=== PATIENT | male | born 1940 | race Caucasian/White ===

== ENCOUNTER → 2016-02-28 | Outpatient (CLI) | payer MEDICARE ==
[2016-02-28 18:13] LABS: Blood Urea Nitrogen 15 mg/dL (9-20); Non-African American GFR(MDRD) >60 (>60 ml/min/1.73 sqM)
--- NOTE | 2016-02-28 20:22 | CT ---
EXAMINATION TYPE: CT abdomen pelvis w con DATE OF EXAM: 02/28/2016 7:51 PM COMPARISON: NONE HISTORY: Pt states of RLQ pain x1 month. CT DLP: 699.8 mGycm Automated exposure control for dose reduction was used. TECHNIQUE: Helical acquisition of images was performed from the lung bases through the pelvis. CONTRAST: Performed with Oral Contrast and with IV Contrast, patient injected with 100 mL of Omnipaque 300. FINDINGS: LUNG BASES: Bullae and blebs are noted in the lung bases. LIVER/GB: No significant abnormality is appreciated. PANCREAS: No significant abnormality is seen. SPLEEN: No significant abnormality is seen. ADRENALS: No significant abnormality is seen. KIDNEYS: Bilateral simple appearing renal cysts are noted, with one measuring nearly 12 cm diameter e xtending superiorly from the upper pole left kidney. Otherwise, no significant abnormality is seen. RETROPERITONEAL ADENOPATHY: None visualized REPRODUCTIVE ORGANS: No significant abnormality is seen URINARY BLADDER: No significant abnormality is seen. PELVIC ADENOPATHY: None visualized. OSSEOUS STRUCTURES: No significant abnormality is seen. BOWEL: There is no bowel obstruction. The appendix is retrocecal in position and has normal appearanc e. ANTERIOR RIGHT LOWER QUADRANT FINDING: The anterior abdominal wall is intact. However, low in the pel vis immediately medial to the ipsilateral right inferior epigastric vasculature is asymmetric 1.5 cm soft tissue density. This is a nonspecific finding - but may correlate with a clinical diagnosis of r esidual change from intermittent right direct inguinal hernia. VASCULATURE: Nonaneurysmal atherosclerotic calcifications are seen throughout the arterial anatomy. IMPRESSION: 1. NO ACUTE PROCESS. 2. HOWEVER, RIGHT LOWER QUADRANT ASYMMETRY DISCUSSED.
== END | disposition home or self-care (01) ==
LOC: RADCTMAIN 17:27
PROVIDERS: ATTEND Family Medicine
DX: R10.9 Unspecified abdominal pain (principal); Z01.812 Encounter for preprocedural laboratory examination
CPT/HCPCS: 82565; 84520; 74177; 36415; Q9967

== ENCOUNTER 2017-03-19 03:01 | Inpatient (IN) | payer MEDICARE ==
[2017-03-19] MEDS ORDERED: IPRATROPIUM 0.5 MG/2.5 ML NEBU INHALATION STA (03:21)
[2017-03-19] MEDS ORDERED: methylPREDNISolone SOD SUCCI 125 MG/2 ML VIAL IV STA (03:21)
[2017-03-19] MEDS ORDERED: ALBUTEROL NEBULIZED 2.5 MG/3 ML INHALATION STA (03:21)
[2017-03-19 04:06] LABS: Basophils % (A) 0 %; Eosinophils # (A) 0.1 k/uL (0-0.7); Eosinophils % (A) 1 %; HCT 41.1 % (39.0-53.0); HGB 13.3 gm/dL (13.0-17.5); Lymphocytes # (A) 2.4 k/uL (1.0-4.8); Lymphocytes % (A) 16 %; MCHC 32.4 g/dL (31.0-37.0); MCV 101.9 fL (80.0-100.0); Macrocytosis Slight; Mean Platelet Volume 6.4; Monocytes # (A) 0.8 k/uL (0-1.0); Monocytes % (A) 6 %; Neutrophils # (A) 11.3 k/uL (1.3-7.7); Neutrophils % (A) 76 %; Platelet Count 173 k/uL (150-450); RBC 4.04 m/uL (4.30-5.90); RDW 13.1 % (11.5-15.5); WBC 14.8 k/uL (3.8-10.6)
[2017-03-19 04:25] LABS: ALT 48 U/L (21-72); AST 39 U/L (17-59); Albumin 3.7 g/dL (3.5-5.0); Alkaline Phosphatase 65 U/L (38-126); Anion Gap 7 mmol/L; Blood Urea Nitrogen 16 mg/dL (9-20); Calcium 9.5 mg/dL (8.4-10.2); Carbon Dioxide 30 mmol/L (22-30); Chloride 101 mmol/L (98-107); Glucose 114 mg/dL (74-99); Potassium 4.3 mmol/L (3.5-5.1); Sodium 138 mmol/L (137-145); Total Bilirubin 1.1 mg/dL (0.2-1.3); Total Protein 6.2 g/dL (6.3-8.2)
--- NOTE | 2017-03-19 04:25 | ED ---
SOB HPI - General Chief Complaint: Shortness of Breath Stated Complaint: SOB Time Seen by Provider: 03/19/17 03:16 Source: patient Mode of arrival: wheelchair Limitations: no limitations - History of Present Illness Initial Comments: 76 years old male comes in with severe shortness of breath he has a history of COPD he has smoked over 50 years and his added that was at time he was smoking 3-4 packs a day and is also complaining about the chest pain ongoing for last couple days and now chest pain is worse when he takes a deep breath he denies any fever no chills he's coughing up phlegm he is having a hard time bringing phlegm up he denies any headache no neck stiffness has chest pain has shortness of breath has a pleuritic chest pain no abdominal pain no frequency urgency dysuria no symptoms of TIA or CVA - Related Data Home Medications Medication Instructions Recorded Confirmed Atorvastatin [Lipitor] 20 mg PO DAILY 03/19/17 03/19/17 Budesonide-Formot 160-4.5 Mcg 2 puff INHALATION BID 03/19/17 03/19/17 [Symbicort 160-4.5 Mcg Inhaler] HYDROcodone/APAP 5-325MG [[place] 1 tab PO Q6HR PRN 03/19/17 03/19/17 5-325] Ipratropium-Albuterol Nebulize 3 ml INHALATION 03/19/17 [Duoneb 0.5 mg-3 mg/3 ml Soln] Ipratropium/Albuterol Sulfate 1 puff INHALATION QID 03/19/17 03/19/17 [Combivent Respimat Inhaler] predniSONE 5 mg PO DAILY 03/19/17 03/19/17 Allergies Allergy/AdvReac Type Severity Reaction Status Date / Time No Known Allergies Allergy Verified 03/19/17 03:07 Review of Systems ROS Statement: Those systems with pertinent positive or pertinent negative responses have been documented in the HPI. ROS Other: All systems not noted in ROS Statement are negative. Past Medical History Past Medical History: COPD History of Any Multi-Drug Resistant Organisms: None Reported Past Surgical History: Hernia Repair Additional Past Surgical History / Comment(s): Lung sx Past Psychological History: No Psychological Hx Reported Smoking Status: Former smoker Past Alcohol Use History: None Reported Past Drug Use History: None Reported General Exam Limitations: no limitations Course Vital Signs 03/19/17 03/19/17 03/19/17 03:03 03:47 04:10 Temperature 99.4 F Pulse Rate 103 H 100 104 H Respiratory 20 Rate Blood Pressure 109/58 O2 Sat by Pulse 95 Oximetry 03/19/17 04:30 Temperature Pulse Rate 108 H Respiratory Rate Blood Pressure O2 Sat by Pulse Oximetry EKG is sinus tachycardia ventricular rate is 109 AR interval is 152 QRS duration is 70 QT/QTC 326/452 and we have this EKG does not reveal any ST elevation or ST depression , Patient is reassessed at 5:30 AM, white count is 15 with some left shift d- dimer is negative troponin is negative compressive metabolic panel is negative chest x-rays consistent with the bilateral patchy infiltrate consistent with a pneumonia E I sinus tachycardia [place] [address] elevation noticed centering his pneumonia and COPD he be admitted to Medical Decision Making - Lab Data Result diagrams: 03/19/17 03:50 03/19/17 03:50 Lab Results 03/19/17 03/19/17 03/19/17 Range/Units 03:50 03:50 03:50 WBC 14.8 H (3.8-10.6) k/uL RBC 4.04 L (4.30-5.90) m/uL Hgb 13.3 (13.0-17.5) gm/dL Hct 41.1 (39.0-53.0) % MCV 101.9 H (80.0-100.0) fL MCH 33.0 (25.0-35.0) pg MCHC 32.4 (31.0-37.0) g/dL RDW 13.1 (11.5-15.5) % Plt Count 173 (150-450) k/uL Neutrophils % 76 % Lymphocytes % 16 % Monocytes % 6 % Eosinophils % 1 % Basophils % 0 % Neutrophils # 11.3 H (1.3-7.7) k/uL Lymphocytes # 2.4 (1.0-4.8) k/uL Monocytes # 0.8 (0-1.0) k/uL Eosinophils # 0.1 (0-0.7) k/uL Basophils # 0.0 (0-0.2) k/uL Macrocytosis Slight PT (9.0-12.0) sec INR (<1.2) APTT (22.0-30.0) sec D-Dimer (<0.60) mg/L FEU Sodium 138 (137-145) mmol/L Potassium 4.3 (3.5-5.1) mmol/L Chloride 101 (98-107) mmol/L Carbon Dioxide 30 (22-30) mmol/L Anion Gap 7 mmol/L BUN 16 (9-20) mg/dL Creatinine 1.10 (0.66-1.25) mg/dL Est GFR (MDRD) Af Amer >60 (>60 ml/min/1.73 sqM) Est GFR (MDRD) Non-Af >60 (>60 ml/min/1.73 sqM) Glucose 114 H (74-99) mg/dL Calcium 9.5 (8.4-10.2) mg/dL Total Bilirubin 1.1 (0.2-1.3) mg/dL AST 39 (17-59) U/L ALT 48 (21-72) U/L Alkaline Phosphatase 65 (38-126) U/L Total Creatine Kinase 141 (55-170) U/L CK-MB (CK-2) 1.0 (0.0-2.4) ng/mL CK-MB (CK-2) Rel Index 0.7 Troponin I 0.015 (0.000-0.034) ng/mL NT-Pro-B Natriuret Pep pg/mL Total Protein 6.2 L (6.3-8.2) g/dL Albumin 3.7 (3.5-5.0) g/dL 03/19/17 03/19/17 Range/Units 03:50 03:50 WBC (3.8-10.6) k/uL RBC (4.30-5.90) m/uL Hgb (13.0-17.5) gm/dL Hct (39.0-53.0) % MCV (80.0-100.0) fL MCH (25.0-35.0) pg MCHC (31.0-37.0) g/dL RDW (11.5-15.5) % Plt Count (150-450) k/uL Neutrophils % % Lymphocytes % % Monocytes % % Eosinophils % % Basophils % % Neutrophils # (1.3-7.7) k/uL Lymphocytes # (1.0-4.8) k/uL Monocytes # (0-1.0) k/uL Eosinophils # (0-0.7) k/uL Basophils # (0-0.2) k/uL Macrocytosis PT 9.6 (9.0-12.0) sec INR 1.0 (<1.2) APTT 22.0 (22.0-30.0) sec D-Dimer 0.54 (<0.60) mg/L FEU Sodium (137-145) mmol/L Potassium (3.5-5.1) mmol/L Chloride (98-107) mmol/L Carbon Dioxide (22-30) mmol/L Anion Gap mmol/L BUN (9-20) mg/dL Creatinine (0.66-1.25) mg/dL Est GFR (MDRD) Af Amer (>60 ml/min/1.73 sqM) Est GFR (MDRD) Non-Af (>60 ml/min/1.73 sqM) Glucose (74-99) mg/dL Calcium (8.4-10.2) mg/dL Total Bilirubin (0.2-1.3) mg/dL AST (17-59) U/L ALT (21-72) U/L Alkaline Phosphatase (38-126) U/L Total Creatine Kinase (55-170) U/L CK-MB (CK-2) (0.0-2.4) ng/mL CK-MB (CK-2) Rel Index Troponin I (0.000-0.034) ng/mL NT-Pro-B Natriuret Pep 147 pg/mL Total Protein (6.3-8.2) g/dL Albumin (3.5-5.0) g/dL Disposition Clinical Impression: COPD (chronic obstructive pulmonary disease), Pneumonia Disposition: ADMITTED IP TO THIS HOSP Condition: Good Referrals: Ck Villarreal DO [Primary Care Provider] - 1-2 days
[2017-03-19 04:41] LABS: D-Dimer 0.54 mg/L FEU (<0.60); Prothrombin Time 9.6 sec (9.0-12.0); Troponin I 0.015 ng/mL (0.000-0.034)
--- NOTE | 2017-03-19 05:10 | XR ---
EXAM: XR Chest, 2 Views CLINICAL HISTORY: Reason: difficulty breathing TECHNIQUE: Frontal and lateral views of the chest. COMPARISON: Chest x-ray dated 11/21/2015. FINDINGS: Lungs: New mild patchy opacities in both lower lungs. Pleural space: Unremarkable. No pneumothorax. Heart: Unremarkable. No cardiomegaly. Mediastinum: Unremarkable. Bones/joints: Mild degenerative changes of thoracic spine. There is also unchanged mild vertebral body height loss in the lower thoracic spine. IMPRESSION: New mild patchy opacities in both lower lungs. This is suspicious for mild pneumonia.
[2017-03-19] MEDS ORDERED: IPRATROPIUM-ALBUTEROL 3 ML NEB INHALATION PRN (05:52)
[2017-03-19] MEDS ORDERED: LEVOFLOXACIN 750MG-D5W PMX 750 MG in DEXTROSE/WATER 1 150ML.BAG IVPB STA (05:52)
[2017-03-19] MEDS ORDERED: HYDROcodone/APAP 5-325MG 1 EACH TAB PO PRN (05:56)
[2017-03-19] MEDS: IPRATROPIUM-ALBUTEROL 3 ML NEB INHALATION SCH ×5 (07:21→23:31)
[2017-03-19] MEDS ORDERED: SYMBICORT 160-4.5 MCG INHALER INHALATION SCH ×2 (08:00→09:00)
[2017-03-19 08:18] VITALS: BMI 27.8
[2017-03-19] MEDS ORDERED: ATORVASTATIN 20 MG TAB PO SCH (09:00)
[2017-03-19] MEDS: methylPREDNISolone SOD SUCCI 125 MG/2 ML VIAL IV SCH ×2 (11:27→17:37)
--- NOTE | 2017-03-19 11:53 | P.CNPUL ---
History of Present Illness Consult date: 03/19/17 Requesting physician: Jose Catherine Reason for consult: dyspnea, cough, chest pain, pneumonia, abnormal CXR/CT Chief complaint: Increased shortness of breath, chills, chest pain, cough History of present illness: Cliff is a 76-year-old white male patient, who sees Dr. Villarreal for his history of advanced GOLD stage IV COPD who presented to the hospital on 2017 at 0301 with complaints of 3 day history of increasing shortness of breath , chest pain which was limiting his inspiration, no fever but was positive for chills, cough with production of white and yellow sputum and increased swelling in his legs. He wears oxygen at home at bedtime, at 2 L/m. Patient is a former smoker, he quit in 2007, but prior to that he smoked for 44 years. Patient was afebrile on presentation, he slightly tachycardic with a heart rate between 102-110 BPM, twelve-lead EKG showed sinus tachycardia, chest x-ray showed new mild patchy opacities in both lower lungs. His lab work showed WBC of 14.8, hemoglobin of 13.3, d-dimer was negative at 0.54, no coagulopathy, his electrolyte profile was normal, his renal profile was within normal limits with BUN of 16 and creatinine of 1.10, troponins and cardiac enzymes were negative 1 , proBNP was at 147, within normal limits. Influenza screen was negative. Patient was started on nebulized treatments, Symbicort, Levaquin, IV steroids and was admitted for further management. Review of Systems All systems: negative Constitutional: Reports malaise, Reports sweats, Denies chills, Denies fever Eyes: denies blurred vision, denies pain Ears, nose, mouth and throat: Denies headache, Denies sore throat Cardiovascular: Reports dyspnea on exertion, Reports edema, Reports leg edema, Denies chest pain, Denies shortness of breath Respiratory: Reports cough with sputum, Reports dyspnea, Reports home oxygen, Reports pain on inspiration, Denies cough Gastrointestinal: Denies abdominal pain, Denies diarrhea, Denies nausea, Denies vomiting Musculoskeletal: Denies myalgias Integumentary: Denies pruritus, Denies rash Neurological: Denies numbness, Denies weakness Psychiatric: Denies anxiety, Denies depression Endocrine: Denies fatigue, Denies weight change Past Medical History Past Medical History: COPD History of Any Multi-Drug Resistant Organisms: None Reported Past Surgical History: Hernia Repair Additional Past Surgical History / Comment(s): Lung sx, cataract surgery Past Anesthesia/Blood Transfusion Reactions: No Reported Reaction Past Psychological History: No Psychological Hx Reported Smoking Status: Former smoker Past Alcohol Use History: None Reported Past Drug Use History: None Reported - Past Family History Father Family Medical History: Hypertension, Seizure Disorder Mother Family Medical History: Cancer, Diabetes Mellitus Additional Family Medical History / Comment(s): breast cancer Medications and Allergies Home Medications Medication Instructions Recorded Confirmed Type Atorvastatin [Lipitor] 20 mg PO HS 03/19/17 03/19/17 History Budesonide-Formot 160-4.5 Mcg 2 puff INHALATION RT-BID 03/19/17 03/19/17 History [Symbicort 160-4.5 Mcg Inhaler] HYDROcodone/APAP 5-325MG [[place] 1 tab PO HS 03/19/17 03/19/17 History 5-325] Ipratropium-Albuterol Nebulize 3 ml INHALATION RT-QID PRN 03/19/17 03/19/17 History [Duoneb 0.5 mg-3 mg/3 ml Soln] Ipratropium/Albuterol Sulfate 1 puff INHALATION RT-QID 03/19/17 03/19/17 History [Combivent Respimat Inhaler] predniSONE 5 mg PO DAILY 03/19/17 03/19/17 History Allergies Allergy/AdvReac Type Severity Reaction Status Date / Time No Known Allergies Allergy Verified 03/19/17 08:43 Physical Exam Vitals: Vital Signs Temp Pulse Pulse Resp BP BP Pulse Ox 03/19/17 11:25 102 H 03/19/17 07:34 98.8 F 110 H 21 124/64 95 03/19/17 07:31 102 H 03/19/17 07:23 108 H 98 03/19/17 06:00 117 H 20 156/67 96 03/19/17 05:00 122 H 20 96 03/19/17 04:30 108 H 03/19/17 04:10 104 H 03/19/17 04:07 108 H 18 151/73 96 03/19/17 03:47 100 03/19/17 03:07 110 H 20 96 03/19/17 03:03 99.4 F 103 H 20 109/58 95 Intake and Output 03/18/17 03/19/17 03/19/17 22:59 06:59 14:59 Intake Total 120 Balance 120 Intake: Oral 120 Other: Voiding Method Toilet Weight 80.739 kg GENERAL EXAM: Alert, pleasant, 76-year-old white male, comfortable in no apparent distress. HEAD: Normocephalic/atraumatic. EYES: Normal reaction of pupils, equal size. Conjunctiva pink, sclera white. NOSE: Clear with pink turbinates. THROAT: No erythema or exudates. NECK: No masses, no JVD, no thyroid enlargement, no adenopathy. CHEST: No chest wall deformity. Symmetrical expansion. LUNGS: Diminished air entry bilaterally, with rales at bilateral bases CVS: Regular rate and rhythm, normal S1 and S2, no gallops, no murmurs, no rubs ABDOMEN: Soft, nontender. No hepatosplenomegaly, normal bowel sounds, no guarding or rigidity. EXTREMITIES: No clubbing, no edema, no cyanosis, 2+ pulses and upper and lower extremities. MUSCULOSKELETAL: Muscle strength and tone normal. SPINE: No scoliosis or deformity SKIN: No rashes CENTRAL NERVOUS SYSTEM: Alert and oriented -3. No focal deficits, tone is normal in all 4 extremities. PSYCHIATRIC: Alert and oriented -3. Appropriate affect. Intact judgment and insight. Results - Laboratory Findings CBC and BMP: 03/19/17 03:50 03/19/17 03:50 PT/INR, D-dimer PT 9.6 sec (9.0-12.0) 03/19/17 03:50 INR 1.0 (<1.2) 03/19/17 03:50 D-Dimer 0.54 mg/L FEU (<0.60) 03/19/17 03:50 Abnormal lab findings: Abnormal Labs 03/19/17 03/19/17 03:50 03:50 WBC 14.8 H RBC 4.04 L MCV 101.9 H Neutrophils # 11.3 H Glucose 114 H Total Protein 6.2 L - Diagnostic Findings Chest x-ray: report reviewed Additional studies: Twelve-lead EKG was reviewed Assessment and Plan Plan: Assessment: #1. Acute community acquired bilateral lower lobe pneumonia #2. Acute COPD exacerbation secondary to the above #3. Advanced COPD, GOLD stage IV, oxygen dependent, baseline FEV1 is 45% of predicted from PFT done on 12/19/2015 #4. Nicotine dependence, in remission, patient quit in 2007, carries a 44 year smoking history #5. Chronic back pain #6. Hypercholesterolemia Plan: Continue current medical treatment, continue IV steroids, Symbicort, DuoNeb nebulized treatments, continue Levaquin. Obtain sputum sample. I performed a history & physical examination of the patient and discussed their management with my nurse practitioner, Elva Ortiz. I reviewed the nurse practitioner's note and agree with the documented findings and plan of care. Lung sounds are positive for diminished air entry bilaterally, with bibasilar crackles. The findings and the impression was discussed with the patient. I attest to the documentation by the nurse practitioner. Time with Patient: Greater than 30
[2017-03-19] MEDS: BUDESONIDE 1 MG/2 ML NEBU INHALATION SCH ×2 (11:58→20:05)
[2017-03-19] MEDS: ENOXAPARIN 40 MG/0.4 ML SYRINGE SQ SCH (12:35)
--- NOTE | 2017-03-19 17:24 | HP ---
HISTORY AND PHYSICAL DATE OF ADMISSION: 03/19/2017 PRESENTING COMPLAINT: Short of breath. HISTORY OF PRESENTING COMPLAINT: This is a very pleasant 76-year-old patient who follows with Dr. Esquivel as his family doctor and pulmonary Dr. Villarreal. The patient's chronic stable medical conditions include hypercholesteremia, osteoarthritis, has home oxygen at 2.5 L typically at night. The patient is an ex-smoker. The patient for the last 3 to 4 days was becoming more and more short of breath, wheezing, coughing with yellow sputum. No fever. Chills. Decreased appetite. Tired, rundown. Presented to the hospital. His is present at the bedside. REVIEW OF SYSTEMS: CONSTITUTIONAL: Chills. HEENT: None. RESPIRATORY: As above. CARDIOVASCULAR: None. GASTROINTESTINAL: Some constipation. GENITOURINARY: Poor urine stream. Difficulty initiating. MUSCULOSKELETAL: Arthritic pain in all the joints. DERMATOLOGICAL: None. HEMATOLOGICAL: None. LYMPHATICS: None. PSYCHIATRY: None. NEUROLOGICAL: None. PAST HISTORY: 1. COPD. 2. Hypercholesteremia. 3. Oxygen at night. 4. Osteoarthritis. 5. Reflux symptoms. PAST SURGICAL HISTORY: 1. Hernia repair. 2. Lung surgery. 3. Cataract surgery. SOCIAL HISTORY: The patient used to work in a factory with welding and paint. Smoked for close to 40 years, stopped in 2004. . FAMILY HISTORY: Hypertension, seizure, breast cancer. HOME MEDICATIONS: 1. Prednisone 5 mg a day. 2. Combivent 1 puff q.i.d. 3. DuoNeb q.i.d. p.r.n. 4. [place] 5 one tablet at bedtime. 5. Symbicort 160/4.5 two puffs b.i.d. 6. Lipitor 20 mg at bedtime. ALLERGIES: NONE. PHYSICAL EXAMINATION: Temperature 99.4, pulse 103, respiration 20, blood pressure 109/58, pulse ox 95% on room air. GENERAL APPEARANCE: Average build. Sitting up. Short of breath. EYES: Pupils equal. Conjunctivae normal. HEENT: External appearance of nose and ears normal. Oral cavity normal. NECK: JVD not raised. Mass not palpable. RESPIRATORY: Effort increased. LUNGS: Diminished breath sounds. Prolonged expiration. Wheezing. CARDIOVASCULAR: First and second sounds normal. No edema. ABDOMEN: Soft, nontender. Liver and spleen not palpable. No mass palpable. LYMPHATIC: No lymph node palpable in neck or axillae. PSYCHIATRY: Alert and oriented x3. Mood and affect normal. NEUROLOGICAL: Pupils equal. Cranial nerves grossly intact. Power and sensation grossly intact. MUSCULOSKELETAL: Evidence of osteoarthritis, especially in the hands and knees. Rectal examination shows prominence median furrow, enlarged prostate. INVESTIGATIONS: White count 14.8, hemoglobin 13.3, potassium 4.3. BUN and creatinine are normal. Chest x-ray shows bilateral basilar infiltrates. ASSESSMENT: 1. Bilateral pneumonia. Suspect Gram-negative organism causing sepsis, present on admission. 2. Acute severe chronic obstructive pulmonary disease exacerbation in an ex-smoker. 3. Hypercholesterolemia. 4. Primary osteoarthritis in multiple joints bilaterally. Benign prostatic hypertrophy. 5. Gastroesophageal reflux disease. PLAN: Patient is started on nebulized bronchodilators every 4 hours, inhaled and IV steroids. Also starting the patient on Flomax. Will put the patient on IV ceftriaxone. Care was discussed with the patient and his at the bedside. Dr. Villarreal from Pulmonary was consulted. MMODL / IJN: [id number] /
[2017-03-19] MEDS ORDERED: TAMSULOSIN 0.4 MG CAP.ER.24H PO SCH (18:30)
[2017-03-20] MEDS: methylPREDNISolone SOD SUCCI 125 MG/2 ML VIAL IV SCH ×3 (00:35→11:28)
[2017-03-20 01:53] VITALS: RESP 20
[2017-03-20] MEDS: IPRATROPIUM-ALBUTEROL 3 ML NEB INHALATION SCH ×3 (03:24→12:44)
[2017-03-20] MEDS: BUDESONIDE 1 MG/2 ML NEBU INHALATION SCH (08:28)
[2017-03-20] MEDS: ENOXAPARIN 40 MG/0.4 ML SYRINGE SQ SCH ×2 (08:58→09:02)
[2017-03-20] MEDS ORDERED: LEVOFLOXACIN 500 MG TAB PO SCH (09:00)
[2017-03-20] MEDS ORDERED: cefTRIAXone IN SWFI 1,000 MG/10 ML SYRINGE IVP SCH (09:00)
[2017-03-20 09:08] VITALS: PULSE 105
[2017-03-20 09:10] VITALS: BP 139/72; TEMP 97.8
--- NOTE | 2017-03-20 11:39 | P.PN ---
Subjective Progress Note Date: 03/20/17 Principal diagnosis: Acute community acquired bilateral lower lobe pneumonia and COPD exacerbation Cliff is a 76-year-old white male patient, who sees Dr. Villarreal for his history of advanced GOLD stage IV COPD who presented to the hospital on 2017 at 0301 with complaints of 3 day history of increasing shortness of breath , chest pain which was limiting his inspiration, no fever but was positive for chills, cough with production of white and yellow sputum and increased swelling in his legs. He wears oxygen at home at bedtime, at 2 L/m. Patient is a former smoker, he quit in 2007, but prior to that he smoked for 44 years. Patient was afebrile on presentation, he slightly tachycardic with a heart rate between 102-110 BPM, twelve-lead EKG showed sinus tachycardia, chest x-ray showed new mild patchy opacities in both lower lungs. His lab work showed WBC of 14.8, hemoglobin of 13.3, d-dimer was negative at 0.54, no coagulopathy, his electrolyte profile was normal, his renal profile was within normal limits with BUN of 16 and creatinine of 1.10, troponins and cardiac enzymes were negative 1 , proBNP was at 147, within normal limits. Influenza screen was negative. Patient was started on nebulized treatments, Symbicort, Levaquin, IV steroids and was admitted for further management. On 03/20/2017 patient seen again, he is sitting up in bed, eating breakfast, denies any acute distress. He states he is feeling better today, less shortness of breath, and less coughing. Lung sounds are diminished, no rhonchi no rales or wheezes noted. His been afebrile, he is on 2 L per nasal cannula with O2 sat at 98%. At times she is slightly tachycardic, especially with activity. Recovers well would rest. As been walking to the bathroom, tolerating it well. No acute complaints this morning. Requesting to go home today. From pulmonary standpoint he is stable for discharge home today Objective - Vital Signs Vital signs: Vital Signs Temp 97.8 F 03/20/17 07:00 Pulse 84 03/20/17 08:47 Resp 20 03/20/17 08:00 BP 139/72 03/20/17 07:00 Pulse Ox 98 03/20/17 08:33 Intake & Output 03/19/17 03/20/17 03/20/17 18:59 06:59 18:59 Intake Total 270 360 180 Balance 270 360 180 Intake: Intake, IV Titration 150 Amount Levofloxacin 750Mg-D5w 150 Pmx 750 mg In Dextrose/ Water 1 150ml.bag @ 100 mls/hr IVPB ONCE STA Rx#: [id number] Oral 120 360 180 Other: Voiding Method Toilet Toilet Toilet # Voids 3 2 - Exam GENERAL EXAM: Alert, pleasant, 76-year-old white male, comfortable in no apparent distress. HEAD: Normocephalic/atraumatic. EYES: Normal reaction of pupils, equal size. Conjunctiva pink, sclera white. NOSE: Clear with pink turbinates. THROAT: No erythema or exudates. NECK: No masses, no JVD, no thyroid enlargement, no adenopathy. CHEST: No chest wall deformity. Symmetrical expansion. LUNGS: Diminished air entry bilaterally, no rales, no wheezes or rhonchi CVS: Regular rate and rhythm, normal S1 and S2, no gallops, no murmurs, no rubs ABDOMEN: Soft, nontender. No hepatosplenomegaly, normal bowel sounds, no guarding or rigidity. EXTREMITIES: No clubbing, no edema, no cyanosis, 2+ pulses and upper and lower extremities. MUSCULOSKELETAL: Muscle strength and tone normal. SPINE: No scoliosis or deformity SKIN: No rashes CENTRAL NERVOUS SYSTEM: Alert and oriented -3. No focal deficits, tone is normal in all 4 extremities. PSYCHIATRIC: Alert and oriented -3. Appropriate affect. Intact judgment and insight. - Labs CBC & Chem 7: 03/19/17 03:50 03/19/17 03:50 Labs: Microbiology - Last 24 Hours (Table) 03/19/17 03:00 Blood Culture - Preliminary Blood No Growth after 24 hours Assessment and Plan Plan: Assessment: #1. Acute community acquired bilateral lower lobe pneumonia #2. Acute COPD exacerbation secondary to the above #3. Advanced COPD, GOLD stage IV, oxygen dependent, baseline FEV1 is 45% of predicted from PFT done on 12/19/2015 #4. Nicotine dependence, in remission, patient quit in 2007, carries a 44 year smoking history #5. Chronic back pain #6. Hypercholesterolemia Plan: Patient is improving clinically, his vital signs are stable, his been afebrile. Reports improvement in terms of dyspnea and coughing. Tolerating activity well. From pulmonary standpoint he is stable for discharge home today, on 7 day course of oral Levaquin 750 mg daily, prednisone taper, his maintenance inhalers and nebulizers. He has a follow-up appointment with Dr. Villarreal in the office on 03/24/2017 at 8:45 in the morning I performed a history & physical examination of the patient and discussed their management with my nurse practitioner, Elva Ortiz. I reviewed the nurse practitioner's note and agree with the documented findings and plan of care. Lung sounds are positive for diminished air entry bilaterally. The findings and the impression was discussed with the patient. I attest to the documentation by the nurse practitioner. Time with Patient: Less than 30
--- NOTE | 2017-03-20 20:01 | DS ---
DISCHARGE SUMMARY DATE OF ADMISSION: 03/19/17. DATE OF DISCHARGE: 03/20/17. FINAL DIAGNOSES: 1. Bilateral pneumonia suspect gram-negative organism causing sepsis present on admission. 2. Acute severe chronic obstructive pulmonary disease exacerbation in an ex-smoker, present on admission. 3. Hypercholesteremia. 4. Primary osteoarthritis of multiple joints bilaterally. 5. Benign prostatic hypertrophy. 6. Gastroesophageal reflux disease. 7. Chronic hypoxic respiratory failure on home oxygen 22 years. HOSPITAL COURSE: This patient presented with Dr. Villarreal, presented with bilateral pneumonia, sepsis, could barely breathe. Doing a bit better by the time of discharge. PHYSICAL EXAMINATION: On exam lungs decreased breath sounds. Psych AO x3. Patient up and about in the hallway. The patient is seen by Dr. Villarreal with whom he follows and he okayed him to go home. DISCHARGE MEDICATIONS: 1. Lipitor 20 mg q.h.s. 2. Symbicort 160/4.5, 2 puffs b.i.d. 3. [place] 5 one tablet p.o. q.h.s. 4. DuoNeb q.i.d. p.r.n. 5. Combivent q.i.d. 6. Levaquin 750 mg a day, 7 tablets. 7. Flomax 0.4 mg p.o. daily. 8. Prednisone taper. Follow with Dr. Villarreal on March 24, 2017. Follow with Dr. Esquivel on March 23, 2017. MMODL / IJN: [id number] /
[2017-03-20] MEDS ORDERED: ATORVASTATIN 20 MG TAB PO SCH (21:00)
== END 2017-03-20 14:00 | disposition home or self-care (01) | DRG 871 ==
LOC: EC 03:01 → 3SUR 05:51
PROVIDERS: ADMIT Hospitalist; ATTEND Hospitalist
DX: A41.50 Gram-negative sepsis, unspecified (principal); J18.9 Pneumonia, unspecified organism; J96.11 Chronic respiratory failure with hypoxia; J44.0 Chronic obstructive pulmonary disease with (acute) lower respiratory infection; Z99.81 Dependence on supplemental oxygen; J44.1 Chronic obstructive pulmonary disease with (acute) exacerbation; E78.00 Pure hypercholesterolemia, unspecified; F17.201 Nicotine dependence, unspecified, in remission; G89.29 Other chronic pain; K21.9 Gastro-esophageal reflux disease without esophagitis; M15.9 Polyosteoarthritis, unspecified; N40.0 Benign prostatic hyperplasia without lower urinary tract symptoms; Z79.51 Long term (current) use of inhaled steroids; Z79.899 Other long term (current) drug therapy; Z80.3 Family history of malignant neoplasm of breast; Z82.0 Family history of epilepsy and other diseases of the nervous system; Z82.49 Family history of ischemic heart disease and other diseases of the circulatory system; Z83.3 Family history of diabetes mellitus; Z79.52 Long term (current) use of systemic steroids; M54.9 Dorsalgia, unspecified
CPT/HCPCS: 36415; 71046; 80053; 82550; 82553; 83880; 84484; 85025; 85379; 85610; 85730; 87040; 87070; 87205; 87502; 90935; 93005; 94640; 94644; 94760; 96365; 96375; 99285

== ENCOUNTER 2017-07-08 09:36 | Inpatient (IN) | payer MEDICARE ==
[2017-07-08] MEDS ORDERED: IPRATROPIUM-ALBUTEROL 3 ML NEB INHALATION PRN (10:35)
[2017-07-08] MEDS ORDERED: SODIUM CHLORIDE 0.9% 1,000 ML IV SCH (10:45)
[2017-07-08] MEDS ORDERED: IPRATROPIUM-ALBUTEROL 3 ML NEB INHALATION SCH (12:00)
[2017-07-08] MEDS: cefTRIAXone IN SWFI 1,000 MG/10 ML SYRINGE IVP SCH (12:16)
[2017-07-08] MEDS: methylPREDNISolone SOD SUCCI 125 MG/2 ML VIAL IV SCH ×3 (12:16→23:18)
[2017-07-08 12:36] LABS: Basophils % (A) 0 %; Eosinophils % (A) 1 %; HCT 38.6 % (39.0-53.0); HGB 13.1 gm/dL (13.0-17.5); Lymphocytes % (A) 26 %; MCH 33.2 pg (25.0-35.0); MCV 97.6 fL (80.0-100.0); Mean Platelet Volume 6.9; Monocytes # (A) 0.6 k/uL (0-1.0); Monocytes % (A) 7 %; Neutrophils # (A) 5.1 k/uL (1.3-7.7); Neutrophils % (A) 65 %; Platelet Count 199 k/uL (150-450); RBC 3.96 m/uL (4.30-5.90); RDW 14.6 % (11.5-15.5); WBC 7.9 k/uL (3.8-10.6)
[2017-07-08 12:43] LABS: ALT 39 U/L (21-72); AST 22 U/L (17-59); Albumin 3.9 g/dL (3.5-5.0); Alkaline Phosphatase 75 U/L (38-126); Anion Gap 12 mmol/L; Blood Urea Nitrogen 23 mg/dL (9-20); Calcium 9.4 mg/dL (8.4-10.2); Carbon Dioxide 26 mmol/L (22-30); Chloride 100 mmol/L (98-107); Glucose 99 mg/dL (74-99); Sodium 138 mmol/L (137-145); Total Bilirubin 0.8 mg/dL (0.2-1.3); Total Protein 6.3 g/dL (6.3-8.2)
[2017-07-08] MEDS ORDERED: FAMOTIDINE 20 MG TAB PO PRN (14:24)
[2017-07-08] MEDS ORDERED: BISACODYL 10 MG SUPP RECTAL PRN (14:26)
[2017-07-08] MEDS ORDERED: ALPRAZolam 0.25 MG TAB PO PRN (14:26)
[2017-07-08] MEDS ORDERED: MELATONIN 3 MG TABLET PO PRN (14:26)
[2017-07-08] MEDS ORDERED: ONDANSETRON 4 MG/2 ML VIAL IVP PRN (14:26)
[2017-07-08] MEDS ORDERED: MAGNESIUM HYDROXIDE 2,400 MG/10 ML CUP PO PRN (14:26)
[2017-07-08] MEDS ORDERED: ACETAMINOPHEN TAB 325 MG TAB PO PRN (14:26)
[2017-07-08] MEDS ORDERED: CALCIUM CARBONATE 500 MG CHEWABLE PO PRN (14:26)
[2017-07-08] MEDS ORDERED: NALOXONE 0.4 MG/ML 1 ML VIAL IV PRN (14:26)
[2017-07-08] MEDS ORDERED: LACTULOSE 20 GM/30 ML CUP PO PRN (14:26)
[2017-07-08] MEDS: ENOXAPARIN 40 MG/0.4 ML SYRINGE SQ SCH (14:48)
--- NOTE | 2017-07-08 15:04 | XR ---
EXAMINATION TYPE: XR chest 2V DATE OF EXAM: 07/08/2017 COMPARISON: Prior chest x-ray 03/19/2017 and 03/30/2017, CT 02/28/2016 HISTORY: COPD and shortness of breath TECHNIQUE: Frontal and lateral views of the chest are obtained. FINDINGS: Prominent lung lines are compatible with COPD. There is increased AP diameter of the chest . Bone mineralization is reduced. Patchy basilar density is noted. Aorta is dense. Cardiomediastinal silhouette, pulmonary vascularity and elvin not significantly changed. No pneumothorax or pleural effu nico. Retrocardiac density with central lucency compatible with hiatal hernia. Mild anterior wedge de formity of the lower thoracic spine is stable. There is multilevel thoracic spondylosis. Prominent ep icardial fat is present, possibly diaphragmatic hernia. IMPRESSION: Emphysema, hiatal hernia, additional findings above, follow-up as indicated
--- NOTE | 2017-07-08 15:09 | XR ---
Lumbar spine HISTORY: Trauma, low back pain 3 views of the lumbar spine, correlation CT abdomen pelvis 02/28/2016 L1 vertebral body shows loss of height anteriorly approximately 25%, T12 and T11 shows some mild loss of height centrally as on prior CT. There is no evident retropulsion. Bone mineralization is reduced . There is multilevel spondylosis. Disc spaces are relatively maintained, there is mild loss of disc height L4-5. Sclerosis present posterior elements. There are vascular calcifications in the aortoilia c distribution. There is mild spinal curvature. IMPRESSION: Osteoporotic compression fracture at L1 is an interval finding. Mild degenerative disc di sease, facet arthropathy.
[2017-07-08] MEDS: HYDROcodone/APAP 10-325MG 1 EACH TAB PO PRN (16:00)
--- NOTE | 2017-07-08 16:01 | HP ---
HISTORY AND PHYSICAL DATE OF ADMISSION: 07/08/17. PRESENTING COMPLAINT: Short of breath, wheezing. HISTORY OF PRESENTING COMPLAINT: This is a 76-year-old patient of Dr. Esquivel whose chronic stable medical conditions include hypercholesteremia, osteoarthritis home oxygen 2.5 L, that is chronic hypoxic respiratory failure. The patient was sent in from Dr. Villarreal's office who is the patient's card cutter. The patient progressively getting more and more short of breath, some wheezing, slight cough, minimal sputum. Edema has been present. No fever, chills. Appetite is fair. The patient does use 2 pillows at night. REVIEW OF SYSTEMS: Constitutional tired. HEENT none. Respiratory as above. Cardiovascular: No chest pain. Gastrointestinal none. Genitourinary: Poor urinary stream. Musculoskeletal: Pain in the joints. Dermatological and hematologic, lymphatic none. Psychiatry none. Neurological none. PAST MEDICAL HISTORY: COPD, hypercholesteremia, home oxygen 2.5 L, osteoarthritis, reflux symptoms. PAST SURGICAL HISTORY: Hernia repair, lung surgery, cataract surgery. SOCIAL HISTORY: Used to work in a factory with welding and paint. Smoked for close to 40 years, stopped in 2004. . FAMILY HISTORY: Of hypertension, seizure, breast cancer. HOME MEDICATIONS: 1. Prednisone 30 mg a day. 2. Zantac 150 mg p.o. daily p.r.n. 3. Combivent 1 puff q.i.d. p.r.n. 4. DuoNeb q.i.d. p.r.n. 5. [place] 10 1 tab q.h.s. 6. Symbicort 160/4.5, 2 puffs b.i.d. 7. Lipitor 20 mg q.h.s. ALLERGIES: LEVAQUIN. PHYSICAL EXAMINATION: Temp 98.2, pulse 100, respiration 19, blood pressure 132/80, pulse ox 93% on 2 L. GENERAL APPEARANCE: Well built, BMI 38.9, sitting up, tired appearing. EYES: Pupil equal. Conjunctivae normal. HEENT: External appearance of nose and ears normal. Oral cavity normal. NECK: JVD unable to assess. Mass not palpable. RESPIRATORY: Effort increased. LUNGS: Poor air entry, prolonged expiration. CARDIOVASCULAR: 1st and 2nd sounds normal. Edema present. ABDOMEN: Distended, soft. Liver and spleen not palpable. No mass palpable. LYMPHATICS: No lymph nodes palpable in the neck and axilla. PSYCHIATRY: Alert and oriented times three. Mood and affect normal. NEUROLOGICAL: Pupils equal. Cranial nerves grossly intact. Power and sensation grossly intact. MUSCULOSKELETAL: Mild tenderness in the lower lumbar spine. INVESTIGATIONS: White count 7.9, hemoglobin 13.1, potassium 4.0. Chest x-ray pending. ASSESSMENT: 1. Acute severe chronic obstructive pulmonary disease exacerbation in an ex-smoker. 2. Gastroesophageal reflux disease. 3. Hyperlipidemia. 4. Primary osteoarthritis. 5. Chronic hypoxic respiratory failure on 2 L of oxygen at home. 6. Chronic bilateral sciatica. 7. Low back pain after fall 3 to 4 days ago. PLAN: Patient's home medications are resumed. Patient is put on nebulized bronchodilators and IV steroids. Chest x-ray is pending. We will order a 2-D echocardiogram to check for cor pulmonale. We will also order a lumbosacral spine x-ray. Care was discussed with the patient. Questions were answered. Consultation to Dr. Gonzalez. ANDRESSA / ELY: [id number] /
[2017-07-08] MEDS: IPRATROPIUM-ALBUTEROL 3 ML NEB INHALATION SCH ×3 (16:09→23:30)
[2017-07-08 17:40] LABS: Glucose,Whole Blood 181 mg/dL (75-99)
[2017-07-08] MEDS: INSULIN ASPART 100 UNIT/ML 1 ML 10 ML VIAL SQ SCH ×2 (18:14→21:15)
[2017-07-08] MEDS: BUDESONIDE 1 MG/2 ML NEBU INHALATION SCH (19:25)
[2017-07-08] MEDS: FORMOTEROL FUMARATE 20 MCG/2 ML NEBU INHALATION SCH (19:25)
[2017-07-08] MEDS ORDERED: SYMBICORT 160-4.5 MCG INHALER INHALATION SCH (20:00)
[2017-07-08] MEDS ORDERED: HYDROcodone/APAP 10-325MG 1 EACH TAB PO SCH (21:00)
[2017-07-08 21:04] LABS: Glucose,Whole Blood 226 mg/dL (75-99)
[2017-07-08] MEDS: ATORVASTATIN 20 MG TAB PO SCH (21:24)
[2017-07-08 22:28] LABS: Hemoglobin A1C 5.8 % (4.0-6.0)
[2017-07-09] MEDS: methylPREDNISolone SOD SUCCI 125 MG/2 ML VIAL IV SCH ×4 (06:43→23:23)
[2017-07-09] MEDS: IPRATROPIUM-ALBUTEROL 3 ML NEB INHALATION SCH ×4 (07:26→21:27)
[2017-07-09] MEDS: FORMOTEROL FUMARATE 20 MCG/2 ML NEBU INHALATION SCH ×2 (07:26→21:26)
[2017-07-09] MEDS: BUDESONIDE 1 MG/2 ML NEBU INHALATION SCH ×2 (07:26→21:26)
[2017-07-09 07:43] LABS: Glucose,Whole Blood 148 mg/dL (75-99)
[2017-07-09] MEDS: cefTRIAXone IN SWFI 1,000 MG/10 ML SYRINGE IVP SCH (08:12)
[2017-07-09] MEDS: INSULIN ASPART 100 UNIT/ML 1 ML 10 ML VIAL SQ SCH ×4 (08:12→20:43)
[2017-07-09] MEDS: ENOXAPARIN 40 MG/0.4 ML SYRINGE SQ SCH (08:13)
--- NOTE | 2017-07-09 08:24 | ECHOF ---
Referral Reason:assess Pulm HTN/cor pulmonale MEASUREMENTS -------- HEIGHT: 167.6 cm WEIGHT: 83.9 kg BP: 132/80 RVIDd: 3.0 cm (< 3.3) IVSd: 1.1 cm (0.6 - 1.1) LVIDd: 4.2 cm (3.9 - 5.3) LVPWd: 1.2 cm (0.6 - 1.1) IVSs: 1.8 cm LVIDs: 3.0 cm LVPWs: 1.5 cm LA Diam: 3.5 cm (2.7 - 3.8) LAESV Index (A-L): 15.54 ml/m Ao Diam: 3.3 cm (2.0 - 3.7) AV Cusp: 2.0 cm (1.5 - 2.6) MV EXCURSION: 21.866 mm (> 18.000) MV EF SLOPE: 105 mm/s (70 - 150) EPSS: 0.4 cm MV E Colin: 0.65 m/s MV DecT: 232 ms MV A Colin: 0.88 m/s MV E/A Ratio: 0.74 FINDINGS -------- Sinus rhythm. This was a technically adequate study. The left ventricular size is normal. There is borderline concentric left ventricular hypertrophy. Overall left ventricular systolic function is low-normal with, an EF between 50 - 55 %. The right ventricle is mildly enlarged. Normal LA size by volume 22+/-6 ml/m2. The right atrium is normal in size. The aortic valve is trileaflet and appears structurally normal. The mitral valve is normal. Mild mitral annular calcification present. The tricuspid valve appears structurally normal. The pulmonic valve was not well visualized. There is no pulmonic regurgitation present. The aortic root size is normal. Normal inferior vena cava with normal inspiratory collapse consistent with estimated right atrial pre ssure of 5 mmHg. There is no pericardial effusion. CONCLUSIONS -------- 1. Sinus rhythm. 2. This was a technically adequate study. 3. The left ventricular size is normal. 4. There is borderline concentric left ventricular hypertrophy. 5. Overall left ventricular systolic function is low-normal with, an EF between 50 - 55 %. 6. The right ventricle is mildly enlarged. 7. Normal LA size by volume 22+/-6 ml/m2. 8. The aortic valve is trileaflet and appears structurally normal. 9. Mild mitral annular calcification present. 10. The tricuspid valve appears structurally normal. 11. The pulmonic valve was not well visualized. 12. There is no pulmonic regurgitation present. 13. The aortic root size is normal. 14. Normal inferior vena cava with normal inspiratory collapse consistent with estimated right atrial pressure of 5 mmHg. 15. There is no pericardial effusion. SECURITY SYSTEMS INTEGRATOR: Traci Jones RDCS
--- NOTE | 2017-07-09 10:06 | P.CNOR ---
History of Present Illness - [facility] Consult date: 07/09/17 Consult reason: fracture (L 1 compression fx) History of present illness: This is a 76-year-old male with history of COPD with acute exacerbation who injured his back about a week ago when he was lifting a 30 pound object. He states he fell about 3 pops in his low back and had immediate pain. He denies any acute neurologic dysfunction to the lower extremities. He does have history of chronic numbness and tingling to the legs at night. He does admit to some bladder dysfunction since the injury. He states that he has been having to strain with urination. We're consulted for orthopedic spine evaluation of his low back. Past Medical History Past Medical History: COPD, GERD/Reflux, Hyperlipidemia, Osteoarthritis (OA), Pneumonia, Prostate Disorder Additional Past Medical History / Comment(s): SEVERE COPD, CHRONIC RESPIRATORY FAILURE, HOME O2 AT 2L/NC 16 HOURS A DAY, SOB AND GETS VERTIGO WITH IT, BILATERAL LOWER LEG/ANKLE EDEMA, CHRONIC LOW BACK PAIN WITH BILATERAL SCIATICA, RECENT FALL AND HEARD 3 'POPS" IN HIS BACK-ECCHYMOSIS ON BACK FROM THAT FALL. History of Any Multi-Drug Resistant Organisms: None Reported Past Surgical History: Hernia Repair Additional Past Surgical History / Comment(s): BRONCHOSCOPIES/LAVAGES WITH LAST TIME DONE ON 05/29/17, R LOBECTOMY/THORACOTOMY, R INGUINAL HERNIA REPAIR, COLONOSCOPY IN 2002, BILATERAL CATARACT REMOVAL WITH LENS IMPLANTS, R TESTICLE REMOVED. Past Anesthesia/Blood Transfusion Reactions: Postoperative Nausea & Vomiting ( PONV) Additional Past Anesthesia/Blood Transfusion Reaction / Comm: PT STATES WITH BRONCHOSCOPY 05/29/17 HE HAD PONV. PT HAS CLAUSTERPHOBIA. Smoking Status: Former smoker - Past Family History Father Family Medical History: Hypertension, Seizure Disorder Mother Family Medical History: Cancer, Diabetes Mellitus Additional Family Medical History / Comment(s): breast cancer Medications and Allergies Home Medications Medication Instructions Recorded Confirmed Type Atorvastatin [Lipitor] 20 mg PO HS 03/19/17 07/08/17 History Budesonide-Formot 160-4.5 Mcg 2 puff INHALATION RT-BID 03/19/17 07/08/17 History [Symbicort 160-4.5 Mcg Inhaler] Ipratropium-Albuterol Nebulize 3 ml INHALATION RT-QID PRN 03/19/17 07/08/17 History [Duoneb 0.5 mg-3 mg/3 ml Soln] Ipratropium/Albuterol Sulfate 1 puff INHALATION RT-QID PRN 03/19/17 07/08/17 History [Combivent Respimat Inhaler] HYDROcodone/APAP 10-325MG [[place] 1 tab PO HS 07/08/17 07/08/17 History 10-325] Ranitidine HCl [Zantac] 150 mg PO DAILY PRN 07/08/17 07/08/17 History predniSONE 30 mg PO DAILY 07/08/17 07/08/17 History Allergies Allergy/AdvReac Type Severity Reaction Status Date / Time levofloxacin [From Levaquin] Allergy Unknown Verified 07/08/17 11:34 Physical Examination This is a pleasant 76-year-old male in no acute distress. He is alert and oriented 3. Exam of the thoracic and lumbar spine reveal no obvious deformity. There is a small abrasion about the low back. There is no obvious swelling or ecchymosis. There is pain with palpation and percussion about the lower thoracic/upper lumbar region. Mild right paraspinal musculature tenderness noted. Exam the lower extremities reveals no pain with motion of the hips. He is able to lift each leg off the bed independently. He has full foot ankle motion bilaterally. No neurologic deficits are noted to the lower extremities. Capillary refills less than 3 seconds. Results X-rays of the lumbar spine reveal compression deformity to L1. There is possible slight compression noted to T12 as well. Disc spaces are well- maintained. - Labs Labs: Abnormal Lab Results - Last 24 Hours (Table) 07/08/17 07/08/17 07/08/17 Range/Units 11:58 11:58 17:39 RBC 3.96 L (4.30-5.90) m/uL Hct 38.6 L (39.0-53.0) % BUN 23 H (9-20) mg/dL POC Glucose (mg/dL) 181 H (75-99) mg/dL 07/08/17 07/09/17 Range/Units 20:45 07:41 RBC (4.30-5.90) m/uL Hct (39.0-53.0) % BUN (9-20) mg/dL POC Glucose (mg/dL) 226 H 148 H (75-99) mg/dL H & H 07/08/17 Range/Units 11:58 Hgb 13.1 (13.0-17.5) gm/dL Hct 38.6 L (39.0-53.0) % Result Diagrams: 07/08/17 11:58 07/08/17 11:58 Assessment and Plan (1) Compression fracture of L1 lumbar vertebra Current Visit: Yes Status: Acute Code(s): S32.010A - WEDGE COMPRESSION FRACTURE OF FIRST LUMBAR VERTEBRA, INIT SNOMED Code(s): 906184094 (2) COPD (chronic obstructive pulmonary disease) Current Visit: No Status: Acute Code(s): J44.9 - CHRONIC OBSTRUCTIVE PULMONARY DISEASE, UNSPECIFIED SNOMED Code(s): 08864589 Plan: The clinical and x-ray findings are discussed with the patient. It is recommended he have a computed tomography scan for further evaluation of the L1 compression fracture to assess for any retropulsion of bony fragments. I've ordered an LSO brace. I feel it would be difficult for him to wear a TLSO secondary to his COPD. We will await CT findings and make further recommendations as indicated at that time.
[2017-07-09 12:11] LABS: Glucose,Whole Blood 139 mg/dL (75-99)
[2017-07-09] MEDS: HYDROcodone/APAP 10-325MG 1 EACH TAB PO PRN ×3 (12:34→20:44)
[2017-07-09] MEDS ORDERED: RX INFO: IV CONTRAST WAS GIVEN 1 EACH MISC MISCELLANE PRN (14:30)
[2017-07-09] MEDS: FUROSEMIDE 10 MG/ML 4 ML VIAL IV SCH ×2 (15:10→20:43)
--- NOTE | 2017-07-09 15:19 | P.CNPUL ---
History of Present Illness Consult date: 07/09/17 Requesting physician: Jose Catherine Reason for consult: dyspnea, COPD Chief complaint: Shortness of breath, chest tightness, cough, phlegm production History of present illness: Mr. 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 Villarreal's office yesterday on 2017 for follow-up in regards to his outpatient treatment of his ongoing COPD exacerbation. Patient was last hospitalized in March, with a community acquired bilateral lower lobe pneumonia was treated with Levaquin, initially improved, however never back to his baseline and the patient has been complaining of ongoing dyspnea since then. Patient has been treated on an outpatient basis with rounds of steroids, and antibiotics with no significant improvement. He did undergo an outpatient bronchoscopy on 05/29/2017, cytology was negative, bronchial wash was positive for herpes simplex virus. Patient is an ex-smoker, she quit in 2007, but prior to that he smoked for over 40 years, at times as much as 4 packs a day. His maintenance medications include Symbicort, and nebulized treatments. Despite very aggressive outpatient treatment, patient has failed to improve, and he is complaining of ongoing chest tightness, dyspnea at rest, cough, green phlegm production and worsening peripheral edema in lower extremities. He denied any fever or chills , denied any sick contacts. Chest x-ray completed in the emergency room showed emphysema, hiatal hernia, patchy basilar density. Patient had a fall at home and and did complain of her back pain. Lumbar spine x-ray showed osteoporotic compression fracture of L1, orthopedic surgery following. Patient has been started on IV Solu-Medrol 60 mg every 6 hours, nebulized bronchodilators, Pulmicort, Perforomist, antibiotics in the form of Rocephin, and admitted for further management. Review of Systems All systems: negative Constitutional: Denies chills, Denies fever Eyes: denies blurred vision, denies pain Ears, nose, mouth and throat: Denies headache, Denies sore throat Cardiovascular: Denies chest pain, Denies shortness of breath Respiratory: Reports cough with sputum, Reports dyspnea, Reports home oxygen, Reports respiratory infections, Denies cough Gastrointestinal: Denies abdominal pain, Denies diarrhea, Denies nausea, Denies vomiting Musculoskeletal: Denies myalgias Integumentary: Denies pruritus, Denies rash Neurological: Denies numbness, Denies weakness Psychiatric: Denies anxiety, Denies depression Endocrine: Denies fatigue, Denies weight change Past Medical History Past Medical History: COPD, GERD/Reflux, Hyperlipidemia, Osteoarthritis (OA), Pneumonia, Prostate Disorder Additional Past Medical History / Comment(s): SEVERE COPD, CHRONIC RESPIRATORY FAILURE, HOME O2 AT 2L/NC 16 HOURS A DAY, SOB AND GETS VERTIGO WITH IT, BILATERAL LOWER LEG/ANKLE EDEMA, CHRONIC LOW BACK PAIN WITH BILATERAL SCIATICA, RECENT FALL AND HEARD 3 'POPS" IN HIS BACK-ECCHYMOSIS ON BACK FROM THAT FALL. History of Any Multi-Drug Resistant Organisms: None Reported Past Surgical History: Hernia Repair Additional Past Surgical History / Comment(s): BRONCHOSCOPIES/LAVAGES WITH LAST TIME DONE ON 05/29/17, R LOBECTOMY/THORACOTOMY, R INGUINAL HERNIA REPAIR, COLONOSCOPY IN 2002, BILATERAL CATARACT REMOVAL WITH LENS IMPLANTS, R TESTICLE REMOVED. Past Anesthesia/Blood Transfusion Reactions: Postoperative Nausea & Vomiting ( PONV) Additional Past Anesthesia/Blood Transfusion Reaction / Comment(s): PT STATES WITH BRONCHOSCOPY 05/29/17 HE HAD PONV. PT HAS CLAUSTERPHOBIA. Smoking Status: Former smoker - Past Family History Father Family Medical History: Hypertension, Seizure Disorder Mother Family Medical History: Cancer, Diabetes Mellitus Additional Family Medical History / Comment(s): breast cancer Medications and Allergies Home Medications Medication Instructions Recorded Confirmed Type Atorvastatin [Lipitor] 20 mg PO HS 03/19/17 07/08/17 History Budesonide-Formot 160-4.5 Mcg 2 puff INHALATION RT-BID 03/19/17 07/08/17 History [Symbicort 160-4.5 Mcg Inhaler] Ipratropium-Albuterol Nebulize 3 ml INHALATION RT-QID PRN 03/19/17 07/08/17 History [Duoneb 0.5 mg-3 mg/3 ml Soln] Ipratropium/Albuterol Sulfate 1 puff INHALATION RT-QID PRN 03/19/17 07/08/17 History [Combivent Respimat Inhaler] HYDROcodone/APAP 10-325MG [[place] 1 tab PO HS 07/08/17 07/08/17 History 10-325] Ranitidine HCl [Zantac] 150 mg PO DAILY PRN 07/08/17 07/08/17 History predniSONE 30 mg PO DAILY 07/08/17 07/08/17 History Allergies Allergy/AdvReac Type Severity Reaction Status Date / Time levofloxacin [From Levaquin] Allergy Unknown Verified 07/08/17 11:34 Physical Exam Vitals: Vital Signs Temp Pulse Pulse Resp BP BP Pulse Ox 07/09/17 11:36 76 07/09/17 11:26 75 07/09/17 08:20 98.0 F 112 H 16 118/65 90 L 07/09/17 07:48 74 07/09/17 07:38 72 07/09/17 07:37 72 07/09/17 07:27 72 07/08/17 23:40 84 07/08/17 23:30 84 07/08/17 23:00 97.2 F L 94 18 126/73 93 L 07/08/17 19:52 80 07/08/17 19:40 78 07/08/17 19:39 78 07/08/17 19:25 74 07/08/17 16:21 78 07/08/17 16:09 76 07/08/17 15:00 97.6 F 98 19 127/82 94 L Intake and Output 07/08/17 07/09/17 07/09/17 22:59 06:59 14:59 Intake Total 600 120 Output Total 125 Balance 600 -5 Intake: Intake, IV Titration 600 Amount Sodium Chloride 0.9% 1, 600 000 ml @ 75 mls/hr IV . [id number] Rx#:[id number] Oral 120 Output: Urine 125 Other: # Voids 0 100 76-year-old white male in moderately short of breath with conversation, currently 2 L per nasal cannula, but in no acute distress - Constitutional General appearance: no acute distress - EENT Eyes: PERRLA Ears: bilateral: normal - Neck Neck: no lymphadenopathy Carotids: bilateral: upstroke normal Thyroid: bilateral: normal size - Respiratory Respiratory: right: wheezing, bilateral: diminished, prolonged expiration - Cardiovascular Distant heart sounds Rhythm: regular Heart sounds: normal: S1, S2 ankle Peripheral Edema: bilateral: 1+ leg Peripheral Edema: bilateral: 1+ foot Peripheral Edema: bilateral: 1+ dorsalis pedis Peripheral Pulses: bilateral: Normal radial pulse Peripheral Pulses: bilateral: Normal - Gastrointestinal General gastrointestinal: distended, no organomegaly, soft, no tenderness - Integumentary Integumentary: normal turgor - Neurologic Neurologic: CNII-XII intact - Musculoskeletal Musculoskeletal: gait normal, strength equal bilaterally - Psychiatric Psychiatric: A&O x's 3, appropriate affect, intact judgment & insight Results - Laboratory Findings CBC and BMP: 07/08/17 11:58 07/08/17 11:58 Abnormal lab findings: Abnormal Labs 07/08/17 07/08/17 07/08/17 11:58 11:58 17:39 RBC 3.96 L Hct 38.6 L BUN 23 H POC Glucose (mg/dL) 181 H 07/08/17 07/09/17 07/09/17 20:45 07:41 12:08 RBC Hct BUN POC Glucose (mg/dL) 226 H 148 H 139 H - Diagnostic Findings Chest x-ray: report reviewed, image reviewed Additional studies: Lumbar spine x-ray results reviewed Assessment and Plan Plan: Assessment: #1. Acute exacerbation of chronic obstructive pulmonary disease with failed outpatient treatment #2. Advanced oxygen-dependent COPD, gold stage III, with a baseline FEV1 of 45 % of predicted #3. Recent bronchoscopy on 05/29/2017, and the patient was positive for herpes simplex #4. Recent fall, low back pain, lumbar spine x-ray showed compression fracture of L1 lumbar vertebra or graft #5. Bilateral lower extremity edema, suspect cor pulmonale #6. GERD/reflux #7. Hyperlipidemia #8. Osteoarthritis Plan: Continue IV steroids, nebulized bronchodilators, continue Pulmicort and Perforomist, continue Rocephin. We will initiate IV diuresis, start Lasix 40 mg IV every [address] chest with contrast in the morning. We' ll continue to follow I performed a history & physical examination of the patient and discussed their management with my nurse practitioner, Elva Ortiz. I reviewed the nurse practitioner's note and agree with the documented findings and plan of care. Lung sounds are diminished, with prolongation of expiratory phase. The findings and the impression was discussed with the patient. I attest to the documentation by the nurse practitioner. Time with Patient: Greater than 30
[2017-07-09 17:40] LABS: Glucose,Whole Blood 172 mg/dL (75-99)
--- NOTE | 2017-07-09 18:05 | PN ---
PROGRESS NOTE DATE OF SERVICE: 07/09/2017 PRESENTING COMPLAINT: Short of breath. INTERVAL HISTORY: This patient presented with COPD exacerbation. Still short of breath, edema present. 2D echo shows preserved LV function, some right ventricle dilatation. Tolerating some diet, tired. REVIEW OF SYSTEMS: Done for constitutional, cardiovascular, GI, pulmonary; relevant findings as above. CURRENT MEDICATIONS: Reviewed that include: 1. DuoNeb. 2. Nebulized Pulmicort. 3. IV Solu-Medrol. EXAMINATION: Temperature 96.8, pulse 97, respirations 16, blood pressure 153/82, pulse ox 95% on 2L. GENERAL APPEARANCE: Sitting up, tired-appearing. EYES: Pupils equal. Conjunctivae normal. HEENT: External appearance of nose and ears normal. Oral cavity normal. NECK: JVD unable to assess. Mass not palpable. RESPIRATORY: Effort increased. LUNGS: Poor air entry, prolonged expiration. CARDIOVASCULAR: First and second sounds normal. No edema present. ABDOMEN: Distended, soft. Liver, spleen not palpable. PSYCHIATRY: Alert and oriented x3. Mood and affect normal. INVESTIGATIONS: Lumbar spine x-ray showing L1 compression fracture. 2D echo shows concentric left ventricular hypertrophy, EF 50%-55%, right ventricle mildly enlarged. ASSESSMENT: 1. Acute severe chronic obstructive pulmonary disease exacerbation in an ex-smoker, slow to respond. 2. Gastroesophageal reflux disease. 3. Hyperlipidemia. 4. Primary osteoarthritis. 5. Chronic hypoxic respiratory failure on 2L oxygen at home from underlying chronic obstructive pulmonary disease. 6. Chronic bilateral sciatica. 7. L1 compression fracture secondary to osteoporosis. PLAN: Patient has been ordered a heating pad for the back and a brace. Lasix has been added. fluid restriction. Will discuss with Dr. Gonzalez about element of cor pulmonale. The 2D echocardiogram results are not entirely convincing at this point. MMODL / IJN: [id number] /
[2017-07-09 20:37] LABS: Glucose,Whole Blood 227 mg/dL (75-99)
[2017-07-09] MEDS: ATORVASTATIN 20 MG TAB PO SCH (20:43)
[2017-07-10] MEDS: methylPREDNISolone SOD SUCCI 125 MG/2 ML VIAL IV SCH ×3 (06:45→17:37)
[2017-07-10] MEDS: FUROSEMIDE 10 MG/ML 4 ML VIAL IV SCH ×2 (06:45→17:37)
[2017-07-10 06:59] LABS: Blood Urea Nitrogen 36 mg/dL (9-20)
[2017-07-10 07:40] LABS: Glucose,Whole Blood 201 mg/dL (75-99)
[2017-07-10] MEDS: cefTRIAXone IN SWFI 1,000 MG/10 ML SYRINGE IVP SCH (07:55)
[2017-07-10] MEDS: ENOXAPARIN 40 MG/0.4 ML SYRINGE SQ SCH (07:55)
[2017-07-10] MEDS: INSULIN ASPART 100 UNIT/ML 1 ML 10 ML VIAL SQ SCH ×4 (07:56→21:30)
--- NOTE | 2017-07-10 08:33 | P.PN ---
Subjective Progress Note Date: 07/10/17 Principal diagnosis: L1 compression fracture This is a 76-year-old male who we are following regarding his L1 compression fracture. His computed tomography scan is pending. His brace has arrived and is at bedside currently. He has no new complaints or concerns today. He reports no neurologic deficits to the lower extremities. Objective - Vital Signs Vital signs: Vital Signs Temp 97.4 F L 07/10/17 05:50 Pulse 91 07/10/17 05:50 Resp 17 07/10/17 05:50 BP 135/64 07/10/17 05:50 Pulse Ox 97 07/10/17 05:50 Intake & Output 07/09/17 07/10/17 07/10/17 18:59 06:59 18:59 Output Total 250 650 Balance -250 -650 Weight 84 kg 82.214 kg Output: Urine 250 650 Other: Voiding Method Toilet # Voids 3 - Exam This is a pleasant 76-year-old male in no acute distress. He is alert and oriented 3. Exam of the lumbar spine reveals no obvious deformity. There is a small abrasion about the mid lumbar region. There is pain with palpation and percussion about the upper lumbar region. Mild right sided paraspinal musculature tenderness. He has full foot and ankle motion bilaterally. Neurovascular status to the lower extremities is intact. - Labs CBC & Chem 7: 07/08/17 11:58 07/10/17 06:38 Labs: Abnormal Lab Results - Last 24 Hours (Table) 07/09/17 07/09/17 07/09/17 Range/Units 12:08 17:36 20:34 BUN (9-20) mg/dL POC Glucose (mg/dL) 139 H 172 H 227 H (75-99) mg/dL 07/10/17 07/10/17 Range/Units 06:38 07:16 BUN 36 H (9-20) mg/dL POC Glucose (mg/dL) 201 H (75-99) mg/dL Microbiology - Last 24 Hours (Table) 07/08/17 11:58 Blood Culture - Preliminary Blood No Growth after 24 hours Assessment and Plan (1) Compression fracture of L1 lumbar vertebra Current Visit: Yes Status: Acute Code(s): S32.010A - WEDGE COMPRESSION FRACTURE OF FIRST LUMBAR VERTEBRA, INIT SNOMED Code(s): 442893458 (2) COPD (chronic obstructive pulmonary disease) Current Visit: No Status: Acute Code(s): J44.9 - CHRONIC OBSTRUCTIVE PULMONARY DISEASE, UNSPECIFIED SNOMED Code(s): 40553195 Plan: The clinical and x-ray findings are discussed with the patient. It is recommended he have a computed tomography scan for further evaluation of the L1 compression fracture to assess for any retropulsion of bony fragments. It is recommended that he wear the brace when he is upright. He may remove it in bed. He is to follow-up within 1-2 weeks after discharge.
[2017-07-10] MEDS: BUDESONIDE 1 MG/2 ML NEBU INHALATION SCH ×2 (08:47→19:30)
[2017-07-10] MEDS: IPRATROPIUM-ALBUTEROL 3 ML NEB INHALATION SCH ×5 (08:47→19:30)
[2017-07-10] MEDS: FORMOTEROL FUMARATE 20 MCG/2 ML NEBU INHALATION SCH ×2 (08:47→19:40)
[2017-07-10] MEDS: HYDROcodone/APAP 10-325MG 1 EACH TAB PO PRN ×2 (11:12→20:15)
[2017-07-10 11:44] LABS: Glucose,Whole Blood 133 mg/dL (75-99)
--- NOTE | 2017-07-10 11:48 | CT ---
EXAMINATION TYPE: CT lumbar spine wo con DATE OF EXAM: 07/10/2017 10:59 AM COMPARISON: Lumbar spine radiographs dated 07/08/[address] abdomen pelvis dated 02/27/2016 HISTORY: Compression deformity of L1. Back pain. CT DLP: 599.59 mGycm Automated exposure control for dose reduction was used. TECHNIQUE Unenhanced CT of the lumbar spine was performed. Bone and soft tissue window settings are submitted as well as coronal and sagittal reconstructions. FINDINGS: There is a compression deformity of the L1 vertebral body with 3 mm retropulsion of the sup erior posterior endplate into the spinal canal creating very mild spinal canal stenosis. Vertebral yehuda dy height loss is approximately 10%. There is no evidence of malalignment of the lumbar spine. The kn own compression deformity at T12 is not visualized. No additional compression deformity of the lumbar spine is seen. There is partial visualization of a Large left renal cyst seen on the prior CT of 02/28/2016. T12-L1: Mild spinal canal stenosis as a result of the retropulsion. There is also a broad-based disc bulge. No significant neural foraminal narrowing on CT. L1-L2: Very small broad-based disc bulge results in minimal bilateral neural foraminal narrowing. No spinal canal stenosis. L2-L3: Small broad-based disc bulge results in minimal bilateral neural foraminal narrowing. No spina l canal stenosis. L3-L4: Small broad-based disc bulge and very mild facet arthropathy result in mild bilateral neural f oraminal narrowing. No spinal canal stenosis. L4-L5: There appears to be a small central disc herniation superimposed upon a broad-based disc bulge . There is additionally ligamentum flavum buckling and mild facet arthropathy. Mild neural foraminal narrowing bilaterally and spinal canal stenosis are seen at this level. L5-S1: Small broad-based disc bulge without significant spinal canal stenosis or neural foraminal joelle rowing. IMPRESSION: 1. Compression deformity of the L1 vertebral body, new from the prior exam of 02/28/2016. This is asso ciated 3 mm retropulsion of the superior endplate into the spinal canal creating mild spinal canal st enosis. 2. Suspicion for a small central disc herniation at L4-L5 in addition to degenerative changes that cr eate mild spinal canal stenosis and mild bilateral neural foraminal narrowing. This finding could be further evaluated with MR. 3. Partial visualization of a known large left renal cyst. 4. Mild multilevel disc disease of the lumbar spine as described above.
--- NOTE | 2017-07-10 11:56 | CT ---
EXAMINATION TYPE: CT chest w con DATE OF EXAM: 07/10/2017 COMPARISON: Chest radiograph dated 07/08/2017 HISTORY: Shortness of breath CT DLP: 691.04 mGycm. Automated Exposure Control for Dose Reduction was Utilized. TECHNIQUE: CT scan of the thorax is performed following with IV Contrast, patient injected with 100 mL of Isovue 300. FINDINGS: LUNGS: Extensive panlobular bullous emphysema is most pronounced at the lung apices and within the le ft lower lobe. No suspicious pulmonary masses seen. No focal consolidation, pleural effusion or pneum othorax. Right basilar pulmonary nodule measures 6 mm on series 19 image 50. MEDIASTINUM: There are no greater than 1 cm hilar or mediastinal lymph nodes. No pericardial effusi on is seen. Incidental note is made of a bovine aortic arch. Moderate coronary artery calcifications are seen. OTHER: There is partial visualization of a large left renal cyst measuring at least 12.1 cm. Right up per pole renal cyst is also measures 2.5 cm. There is a moderate hiatal hernia. Old compression defor mity of T11 and T12 are seen with L1 vertebral compression deformity described on the lumbar spine ra diograph of the same date. IMPRESSION: 1. Extensive panlobular bullous emphysema. 2. 6 mm noncalcified right basilar pulmonary nodule for which follow-up is recommended in 6 months gi karson this patient's high risk background. 3. Moderate hiatal hernia. 4. Old compression deformities of T11 and T12 with compression deformity of L1 discussed on the lumba r spine CT of the same date.
--- NOTE | 2017-07-10 14:04 | P.PN ---
Subjective Progress Note Date: 07/10/17 Principal diagnosis: Acute exacerbation of chronic obstructive pulmonary disease with failed outpatient treatment. Bilateral lower extremity edema Mr. Brock is a 76-year-old white male patient with a history of advanced oxygen-dependent COPD, GOLD stage III, with a baseline FEV1 of 45% of predicted , presented to his primary quality consultant Dr. Villarreal's office yesterday on 2017 for follow-up in regards to his outpatient treatment of his ongoing COPD exacerbation. Patient was last hospitalized in March, with a community acquired bilateral lower lobe pneumonia was treated with Levaquin, initially improved, however never back to his baseline and the patient has been complaining of ongoing dyspnea since then. Patient has been treated on an outpatient basis with rounds of steroids, and antibiotics with no significant improvement. He did undergo an outpatient bronchoscopy on 05/29/2017, cytology was negative, bronchial wash was positive for herpes simplex virus. Patient is an ex-smoker, she quit in 2007, but prior to that he smoked for over 40 years, at times as much as 4 packs a day. His maintenance medications include Symbicort, and nebulized treatments. Despite very aggressive outpatient treatment, patient has failed to improve, and he is complaining of ongoing chest tightness, dyspnea at rest, cough, green phlegm production and worsening peripheral edema in lower extremities. He denied any fever or chills , denied any sick contacts. Chest x-ray completed in the emergency room showed emphysema, hiatal hernia, patchy basilar density. Patient had a fall at home and and did complain of her back pain. Lumbar spine x-ray showed osteoporotic compression fracture of L1, orthopedic surgery following. Patient has been started on IV Solu-Medrol 60 mg every 6 hours, nebulized bronchodilators, Pulmicort, Perforomist, antibiotics in the form of Rocephin, and admitted for further management. On 07/10/2017 patient seen again in follow-up. Patient is diuresing, and his weight is down to 82.2 kg from 84 kg yesterday. Reports breathing easier today , lung sounds reveal that her ear entry noted bilaterally, although remains generally diminished. The appearance of bilateral lower extremity edema is improving, patient has some residual swelling. CT chest was completed and reviewed by Dr. Gonzalez, and it showed extensive herrera lobular bullous emphysema , 6 mm noncalcified right basilar pulmonary nodule, moderate hiatal hernia, and old compression deformities of T11 and T12 with compression deformity of L1. The findings of the CT chest were discussed with the patient, and explained to the patient that going symptoms are likely due to to extensive bullous emphysema. Was recommended that patient enrolled in pulmonary rehab program to avoid deconditioning. Continue same treatment, continue diuresis, IV steroids, bronchodilators. Objective - Vital Signs Vital signs: Vital Signs Temp 97.4 F L 07/10/17 05:50 Pulse 88 07/10/17 11:32 Resp 17 07/10/17 08:00 BP 135/64 07/10/17 05:50 Pulse Ox 97 07/10/17 05:50 Intake & Output 07/09/17 07/10/17 07/10/17 18:59 06:59 18:59 Output Total 250 650 Balance -250 -650 Weight 84 kg 82.214 kg Output: Urine 250 650 Other: Voiding Method Toilet Toilet # Voids 3 - Exam 76-year-old white male in moderately short of breath with conversation, currently 2 L per nasal cannula, but in no acute distress - Constitutional General appearance: no acute distress - EENT Eyes: PERRLA Ears: bilateral: normal - Neck Neck: no lymphadenopathy Carotids: bilateral: upstroke normal Thyroid: bilateral: normal size - Respiratory Respiratory: right: wheezing, bilateral: diminished, prolonged expiration - Cardiovascular Distant heart sounds Rhythm: regular Heart sounds: normal: S1, S2 ankle Peripheral Edema: bilateral: 1+ leg Peripheral Edema: bilateral: 1+ foot Peripheral Edema: bilateral: 1+ dorsalis pedis Peripheral Pulses: bilateral: Normal radial pulse Peripheral Pulses: bilateral: Normal - Gastrointestinal General gastrointestinal: distended, no organomegaly, soft, no tenderness - Integumentary Integumentary: normal turgor - Neurologic Neurologic: CNII-XII intact - Musculoskeletal Musculoskeletal: gait normal, strength equal bilaterally - Psychiatric Psychiatric: A&O x's 3, appropriate affect, intact judgment & insight - Labs CBC & Chem 7: 07/08/17 11:58 07/10/17 06:38 Labs: Abnormal Lab Results - Last 24 Hours (Table) 07/09/17 07/09/17 07/10/17 Range/Units 17:36 20:34 06:38 BUN 36 H (9-20) mg/dL POC Glucose (mg/dL) 172 H 227 H (75-99) mg/dL 07/10/17 07/10/17 Range/Units 07:16 11:28 BUN (9-20) mg/dL POC Glucose (mg/dL) 201 H 133 H (75-99) mg/dL Microbiology - Last 24 Hours (Table) 07/08/17 11:58 Blood Culture - Preliminary Blood No Growth after 24 hours Assessment and Plan Plan: Assessment: #1. Acute exacerbation of chronic obstructive pulmonary disease with failed outpatient treatment, CT chest was completed on 07/10/2017 and showed advanced bullous emphysema #2. Advanced oxygen-dependent COPD, gold stage III, with a baseline FEV1 of 45 % of predicted #3. Recent bronchoscopy on 05/29/2017, and the patient was positive for herpes simplex #4. Recent fall, low back pain, lumbar spine x-ray showed compression fracture of L1 lumbar vertebra or graft #5. Bilateral lower extremity edema, suspect cor pulmonale #6. GERD/reflux #7. Hyperlipidemia #8. Osteoarthritis Plan: Today's chest was reviewed by Dr. Gonzalez, and the findings were discussed with the patient and his , explained to the patient that his symptoms and frequent exacerbation of COPD are likely due to his advanced bullous emphysema. Further adjustments to his inhalers will be made, Spiriva or Incruse will be added to his maintenance inhalers. Patient will also need to enroll in the outpatient pulmonary rehabilitation program to increase his conditioning. We'll continue the IV diuresis, lower extremity edema is improving. Continue IV steroids, nebulized bronchodilators, continue Pulmicort and Perforomist, continue Rocephin. We We'll continue to follow I performed a history & physical examination of the patient and discussed their management with my nurse practitioner, Elva Ortiz. I reviewed the nurse practitioner's note and agree with the documented findings and plan of care. Lung sounds are diminished, with prolongation of expiratory phase. The findings and the impression was discussed with the patient. I attest to the documentation by the nurse practitioner. Time with Patient: Less than 30
[2017-07-10 14:55] VITALS: RESP 16
[2017-07-10 17:06] LABS: Glucose,Whole Blood 227 mg/dL (75-99)
[2017-07-10] MEDS: ATORVASTATIN 20 MG TAB PO SCH (20:15)
[2017-07-10 21:09] LABS: Glucose,Whole Blood 206 mg/dL (75-99)
--- NOTE | 2017-07-10 22:01 | PN ---
PROGRESS NOTE DATE OF SERVICE: 07/10/2017 PRESENTING COMPLAINT: Short of breath. INTERVAL HISTORY: Patient admitted with COPD exacerbation. Breathing is better. Also had fluid overload. Fluid overload responded well to Lasix. Breathing is better. Tolerating some diet. Edema is going down. REVIEW OF SYSTEMS: Done for constitutional, cardiovascular, GI, pulmonary; relevant findings as above. CURRENT MEDICATIONS: Reviewed that include: 1. DuoNeb. 2. Solu-Medrol. 3. IV Lasix. EXAMINATION: Temperature 97.3, pulse 104, respirations 16, blood pressure 115/85, pulse ox 94% on 2L. GENERAL APPEARANCE: Lying in bed, more comfortable. EYES: Pupils are normal. Conjunctivae normal. HEENT: External nose and ears normal. Oral cavity normal. NECK: JVD unable to assess. Mass not palpable. RESPIRATORY: Effort increased. LUNGS: Decreased breath sounds. Prolonged expiration. CARDIOVASCULAR: First and second sounds normal. Edema present, but decreased. ABDOMEN: Soft, nontender. Liver, spleen not palpable. PSYCHIATRY: Alert and oriented x3. Mood and affect normal. INVESTIGATIONS: CT chest shows extensive panlobular bullous emphysema, moderate hiatal hernia, compression deformity T11, T12 and compression deformity of L1. Lumbar CT results noted. ASSESSMENT: 1. Acute severe chronic obstructive pulmonary disease exacerbation in an ex-smoker, slow to respond. 2. Gastroesophageal reflux disease. 3. Hyperlipidemia. 4. Primary osteoarthritis. 5. Chronic hypoxic respiratory failure on 2L oxygen at home from underlying chronic obstructive pulmonary disease. 6. Chronic bilateral sciatica. 7. Acute L1 compression fracture secondary to osteoporosis secondary to fall. 8. Chronic T11-T12 compression fracture. 9. Possible fluid overload. Responded well to Lasix. The patient on the 2D echocardiogram is not showing any obvious evidence of pulmonary hypertension or right ventricular strain; hence, unclear for the diagnosis of cor pulmonale. PLAN: At this point, will continue with the current medication and treatment plan, IV Lasix for another 24 hours, scale back on Solu-Medrol. Care was discussed with the patient. MMODL / IJN: [id number] /
[2017-07-10] MEDS: methylPREDNISolone SOD SUCCI 40 MG/ML 1 ML VIAL IV SCH (23:05)
[2017-07-11] MEDS: FUROSEMIDE 10 MG/ML 4 ML VIAL IV SCH ×2 (06:29→14:18)
[2017-07-11] MEDS: INSULIN ASPART 100 UNIT/ML 1 ML 10 ML VIAL SQ SCH ×3 (07:43→14:18)
[2017-07-11 07:44] LABS: Glucose,Whole Blood 169 mg/dL (75-99)
[2017-07-11] MEDS: methylPREDNISolone SOD SUCCI 40 MG/ML 1 ML VIAL IV SCH ×2 (07:44→14:18)
[2017-07-11 07:51] VITALS: BP 135/89; TEMP 97
[2017-07-11] MEDS: ENOXAPARIN 40 MG/0.4 ML SYRINGE SQ SCH (08:05)
[2017-07-11] MEDS: FORMOTEROL FUMARATE 20 MCG/2 ML NEBU INHALATION SCH (08:21)
[2017-07-11] MEDS: BUDESONIDE 1 MG/2 ML NEBU INHALATION SCH (08:21)
[2017-07-11] MEDS: IPRATROPIUM-ALBUTEROL 3 ML NEB INHALATION SCH ×2 (08:21→11:50)
[2017-07-11] MEDS: cefTRIAXone IN SWFI 1,000 MG/10 ML SYRINGE IVP SCH (10:06)
[2017-07-11 11:53] VITALS: PULSE 88
[2017-07-11 11:55] LABS: Glucose,Whole Blood 272 mg/dL (75-99)
[2017-07-11] MEDS: HYDROcodone/APAP 10-325MG 1 EACH TAB PO PRN (12:06)
--- NOTE | 2017-07-11 12:46 | P.PN ---
Subjective Progress Note Date: 07/11/17 Principal diagnosis: Acute exacerbation of chronic obstructive pulmonary disease. Failed outpatient treatment. Bilateral lower extremity edema. Mr. Brock is a 76-year-old white male patient with a history of advanced oxygen-dependent COPD, GOLD stage III, with a baseline FEV1 of 45% of predicted , presented to his primary director global medical affairs Dr. Villarreal's office yesterday on 2017 for follow-up in regards to his outpatient treatment of his ongoing COPD exacerbation. Patient was last hospitalized in March, with a community acquired bilateral lower lobe pneumonia was treated with Levaquin, initially improved, however never back to his baseline and the patient has been complaining of ongoing dyspnea since then. Patient has been treated on an outpatient basis with rounds of steroids, and antibiotics with no significant improvement. He did undergo an outpatient bronchoscopy on 05/29/2017, cytology was negative, bronchial wash was positive for herpes simplex virus. Patient is an ex-smoker, she quit in 2007, but prior to that he smoked for over 40 years, at times as much as 4 packs a day. His maintenance medications include Symbicort, and nebulized treatments. Despite very aggressive outpatient treatment, patient has failed to improve, and he is complaining of ongoing chest tightness, dyspnea at rest, cough, green phlegm production and worsening peripheral edema in lower extremities. He denied any fever or chills , denied any sick contacts. Chest x-ray completed in the emergency room showed emphysema, hiatal hernia, patchy basilar density. Patient had a fall at home and and did complain of her back pain. Lumbar spine x-ray showed osteoporotic compression fracture of L1, orthopedic surgery following. Patient has been started on IV Solu-Medrol 60 mg every 6 hours, nebulized bronchodilators, Pulmicort, Perforomist, antibiotics in the form of Rocephin, and admitted for further management. On 07/10/2017 patient seen again in follow-up. Patient is diuresing, and his weight is down to 82.2 kg from 84 kg yesterday. Reports breathing easier today , lung sounds reveal that her ear entry noted bilaterally, although remains generally diminished. The appearance of bilateral lower extremity edema is improving, patient has some residual swelling. CT chest was completed and reviewed by Dr. Gonzalez, and it showed extensive herrera lobular bullous emphysema , 6 mm noncalcified right basilar pulmonary nodule, moderate hiatal hernia, and old compression deformities of T11 and T12 with compression deformity of L1. The findings of the CT chest were discussed with the patient, and explained to the patient that going symptoms are likely due to to extensive bullous emphysema. Was recommended that patient enrolled in pulmonary rehab program to avoid deconditioning. Continue same treatment, continue diuresis, IV steroids, bronchodilators. The patient is seen again today 07/11/2017 in follow-up on the regular medical floor. He is awake and alert in no acute distress. He is breathing quite a bit easier today as compared to yesterday. He is anxious to go home. He is maintaining good O2 saturations in the 90s on 2 L/m per nasal cannula. He is afebrile. No tachycardia. No tachypnea. He continues to diurese well. His weight is down from 84 kg to 82 kg. Improved peripheral edema. Objective - Vital Signs Vital signs: Vital Signs Temp 97.0 F L 07/11/17 07:00 Pulse 88 07/11/17 12:03 Resp 16 07/11/17 07:00 BP 135/89 07/11/17 07:00 Pulse Ox 94 L 07/11/17 07:00 Intake & Output 07/10/17 07/11/17 07/11/17 18:59 06:59 18:59 Output Total 500 Balance -500 Output: Urine 500 Other: Voiding Method Toilet # Voids 4 2 - Exam - Exam 76-year-old white male with no acute shortness of breath, currently 2 L per nasal cannula - Constitutional General appearance: no acute distress - EENT Eyes: PERRLA Ears: bilateral: normal - Neck Neck: no lymphadenopathy Carotids: bilateral: upstroke normal Thyroid: bilateral: normal size - Respiratory Respiratory: right: wheezing, bilateral: diminished, prolonged expiration - Cardiovascular Distant heart sounds Rhythm: regular Heart sounds: normal: S1, S2 ankle Peripheral Edema: bilateral: 1+ leg Peripheral Edema: bilateral: 1+ foot Peripheral Edema: bilateral: 1+ dorsalis pedis Peripheral Pulses: bilateral: Normal radial pulse Peripheral Pulses: bilateral: Normal - Gastrointestinal General gastrointestinal: distended, no organomegaly, soft, no tenderness - Integumentary Integumentary: normal turgor - Neurologic Neurologic: CNII-XII intact - Musculoskeletal Musculoskeletal: gait normal, strength equal bilaterally - Psychiatric Psychiatric: A&O x's 3, appropriate affect, intact judgment & insight - Labs CBC & Chem 7: 07/08/17 11:58 07/10/17 06:38 Labs: Abnormal Lab Results - Last 24 Hours (Table) 07/10/17 07/10/17 07/11/17 Range/Units 17:04 21:08 07:15 POC Glucose (mg/dL) 227 H 206 H 169 H (75-99) mg/dL 07/11/17 Range/Units 11:51 POC Glucose (mg/dL) 272 H (75-99) mg/dL Microbiology - Last 24 Hours (Table) 07/08/17 11:58 Blood Culture - Preliminary Blood No Growth after 48 hours Assessment and Plan Assessment: Assessment: #1. Acute exacerbation of chronic obstructive pulmonary disease with failed outpatient treatment, CT chest was completed on 07/10/2017 and showed advanced bullous emphysema #2. Advanced oxygen-dependent COPD, gold stage III, with a baseline FEV1 of 45 % of predicted #3. Recent bronchoscopy on 05/29/2017, and the patient was positive for herpes simplex #4. Recent fall, low back pain, lumbar spine x-ray showed compression fracture of L1 lumbar vertebra or graft #5. Bilateral lower extremity edema, suspect cor pulmonale #6. GERD/reflux #7. Hyperlipidemia #8. Osteoarthritis Plan: The patient was seen and evaluated by Dr. Gonzalez. The patient is improved today as compared to yesterday. He is cleared for discharge from the pulmonary standpoint. Continue with his pulmonary medications including a prednisone taper. He'll follow-up in our office in 1-2 weeks' time. He is however encouraged to call sooner with any recurrence of symptoms or other questions or concerns. I, the cosigning physician, performed a history & physical examination of the patient. Lungs sounds with faint end expiratory wheeze.. Maintaining good O2 saturations in the 90s on 2 L/m per nasal cannula. I discussed the assessment and plan of care with my nurse practitioner, Lili Joy. I attest to the above note as dictated by her.
--- NOTE | 2017-07-12 17:34 | DS ---
DISCHARGE SUMMARY DATE OF ADMISSION: 07/08/2017 DATE OF DISCHARGE: 07/11/2017 FINAL DIAGNOSES: 1. Acute severe chronic obstructive pulmonary disease exacerbation in an ex-smoker. 2. Gastroesophageal reflux disease. 3. Hyperlipidemia. 4. Primary osteoarthritis. 5. Chronic hypoxic respiratory failure on 2 L oxygen at home from underlying chronic obstructive pulmonary disease. 6. Chronic bilateral sciatica. 7. Acute L1 compression fracture secondary to osteoporosis and secondary to fall. 8. Chronic T11-T12 compression fracture. 9. Possible fluid overload. HOSPITAL COURSE: This patient with COPD exacerbation, had some fluid overload. Also given Lasix, responded well to steroids, nebulized bronchodilators. The patient had a fall a week before coming in. X-ray did confirm L1 compression fracture. Seen by Dr. Rios from Orthopedics to wear a brace. The patient doing much better at the time of discharge. Edema had gone down. Patient told to wear Greg wraps. Patient did have a 2-D echocardiogram that showed preserved LV function. No obvious evidence of right ventricular strain. EXAM: Lungs decreased breath sounds. Decreased edema. CONSULTATION: Dr. Gonzalez from Pulmonary. Dr. Rios from Orthopedics. DISCHARGE MEDICATIONS: 1. Lipitor 20 mg q.h.s. 2. Symbicort 160/4.5, 2 puffs b.i.d. 3. DuoNeb q.i.d. p.r.n. 4. Combivent q.i.d. p.r.n. 5. [place] 10 q.h.s. 6. Zantac 150 mg p.o. daily. 7. Lasix 40 mg p.o. daily. 8. Potassium 10 mEq p.o. daily. 9. Prednisone taper. Follow up with Dr. Villarreal in 1 week. Follow up with Dr. Rios in 10 days. Patient to wear a TLSO brace and Greg wraps as directed. Discussion and discharge planning more than [address] Villarreal. MMANITA / IJN: [id number] /
== END 2017-07-11 15:30 | disposition home or self-care (01) | DRG 191 ==
LOC: 4MS4W 10:11
PROVIDERS: ADMIT Hospitalist; ATTEND Hospitalist
DX: J43.9 Emphysema, unspecified (principal); J96.11 Chronic respiratory failure with hypoxia; M80.88XA Other osteoporosis with current pathological fracture, vertebra(e), initial encounter for fracture; I27.81 Cor pulmonale (chronic); E87.70 Fluid overload, unspecified; G89.29 Other chronic pain; N42.9 Disorder of prostate, unspecified; R91.1 Solitary pulmonary nodule; B00.9 Herpesviral infection, unspecified; K21.9 Gastro-esophageal reflux disease without esophagitis; E78.5 Hyperlipidemia, unspecified; K44.9 Diaphragmatic hernia without obstruction or gangrene; M19.91 Primary osteoarthritis, unspecified site; M54.41 Lumbago with sciatica, right side; M54.42 Lumbago with sciatica, left side; F40.240 Claustrophobia; E78.00 Pure hypercholesterolemia, unspecified; Z99.81 Dependence on supplemental oxygen; Z79.891 Long term (current) use of opiate analgesic; Z79.51 Long term (current) use of inhaled steroids; Z79.899 Other long term (current) drug therapy; Z87.891 Personal history of nicotine dependence; Z98.41 Cataract extraction status, right eye; Z98.42 Cataract extraction status, left eye; Z87.01 Personal history of pneumonia (recurrent); Z96.1 Presence of intraocular lens; Z88.1 Allergy status to other antibiotic agents; Z83.3 Family history of diabetes mellitus; Z82.49 Family history of ischemic heart disease and other diseases of the circulatory system; Z82.0 Family history of epilepsy and other diseases of the nervous system; Z80.3 Family history of malignant neoplasm of breast; W19.XXXA Unspecified fall, initial encounter; Y92.009 Unspecified place in unspecified non-institutional (private) residence as the place of occurrence of the external cause
CPT/HCPCS: 71046; 71260; 72100; 72131; 80053; 82565; 83036; 84520; 85025; 87040; 93306; 94640

== ENCOUNTER 2018-06-27 20:18 | Inpatient (IN) | payer MEDICARE ==
[2018-06-27] MEDS ORDERED: ONDANSETRON 4 MG/2 ML VIAL IVP STA (20:44)
[2018-06-27] MEDS ORDERED: MORPHINE SULFATE 4 MG/ML SYRINGE IVP STA (20:44)
[2018-06-27 21:23] LABS: Basophils % (A) 0 %; Eosinophils % (A) 0 %; HCT 41.4 % (39.0-53.0); HGB 13.3 gm/dL (13.0-17.5); Lymphocytes # (A) 1.3 k/uL (1.0-4.8); Lymphocytes % (A) 14 %; MCH 31.1 pg (25.0-35.0); MCHC 32.2 g/dL (31.0-37.0); MCV 96.6 fL (80.0-100.0); Mean Platelet Volume 6.9; Monocytes # (A) 0.6 k/uL (0-1.0); Monocytes % (A) 6 %; Neutrophils # (A) 7.4 k/uL (1.3-7.7); Neutrophils % (A) 80 %; Platelet Count 239 k/uL (150-450); RBC 4.29 m/uL (4.30-5.90); RDW 14.6 % (11.5-15.5); WBC 9.3 k/uL (3.8-10.6)
[2018-06-27 21:26] LABS: INR 0.9 (<1.2); Prothrombin Time 9.6 sec (9.0-12.0)
[2018-06-27 21:29] LABS: Albumin 4.3 g/dL (3.5-5.0); Calcium 9.9 mg/dL (8.4-10.2); Magnesium 2.2 mg/dL (1.6-2.3); Potassium 4.8 mmol/L (3.5-5.1); Total Bilirubin 0.6 mg/dL (0.2-1.3); Total Protein 6.9 g/dL (6.3-8.2)
--- NOTE | 2018-06-27 22:03 | ED ---
SOB HPI - General Source: patient Mode of arrival: wheelchair Limitations: physical limitation <Su Iverson - Last Filed: 06/28/18 02:47> <Mag Vega - Last Filed: 06/30/18 08:11> - General Chief Complaint: Shortness of Breath Stated Complaint: COPD, Bilat shoulder pain Time Seen by Provider: 06/27/18 20:35 - History of Present Illness Initial Comments: 77-year-old male patient presents to the emergency department today for evaluation of shortness of breath and sharp stabbing pain between his shoulder blades. Patient states he has been having symptoms for the last 10 days however they have worsened over the last 3-4 days. Patient states he is unable take the pain any longer so presented here for further evaluation. States that he did take 6 norco 10/325 tablets today without relief. States the pain in his back makes him short of breath. Patient does have a history of COPD. Wears 2 L oxygen nasal cannula at all times. States he did quit smoking 8 years ago. Patient states that he has been having wheezing. States he usually does breathing treatments 4 times daily but has had increased to 5-6 times per day. Patient has been using his inhalers as instructed. He denies any fever or chills with this. States he is coughing but is unable to cough up any sputum. Denies any chest pain, nausea, vomiting. Denies any sweats. Patient denies any recent rash, abdominal pain, nausea, vomiting, diarrhea, constipation, numbness, tingling, dizziness, weakness, hematuria, dysuria, urinary urgency, urinary frequency, headache, visual changes, or any other complaints. (Su Iverson) - Related Data Home Medications Medication Instructions Recorded Confirmed Atorvastatin [Lipitor] 20 mg PO HS 03/19/17 06/27/18 Budesonide-Formot 160-4.5 Mcg 2 puff INHALATION RT-BID 03/19/17 06/27/18 [Symbicort 160-4.5 Mcg Inhaler] Ipratropium/Albuterol Sulfate 1 puff INHALATION RT-QID PRN 03/19/17 06/27/18 [Combivent Respimat Inhaler] HYDROcodone/APAP 10-325MG [[place] 1 tab PO HS 07/08/17 06/27/18 10-325] Potassium 99 mg PO DAILY 06/27/18 06/27/18 Tamsulosin [Flomax] 0.4 mg PO HS 06/27/18 06/27/18 Previous Rx's Medication Instructions Recorded Furosemide [Lasix] 40 mg PO DAILY #30 tablet 07/11/17 Baclofen [Lioresal] 5 mg PO Q6H PRN #30 tab 06/29/18 Ipratropium-Albuterol Nebulize 3 ml INHALATION QID #120 ampul.neb 06/29/18 [Duoneb 0.5 mg-3 mg/3 ml Soln] Naproxen [Naprosyn] 500 mg PO Q12HR #20 tab 06/29/18 Psyllium Husk 100% [Metamucil 6 gm PO BID packet 06/29/18 Packet] predniSONE 10 mg PO DAILY #30 tab 06/29/18 Allergies Allergy/AdvReac Type Severity Reaction Status Date / Time gabapentin Allergy Confusion Verified 06/27/18 20:49 levofloxacin [From Levaquin] Allergy Unknown Verified 06/27/18 20:49 Review of Systems ROS Other: All systems not noted in ROS Statement are negative. <Su Iverson - Last Filed: 06/28/18 02:47> ROS Other: All systems not noted in ROS Statement are negative. <Mag Vega - Last Filed: 06/30/18 08:11> ROS Statement: Those systems with pertinent positive or pertinent negative responses have been documented in the HPI. Past Medical History Past Medical History: COPD, GERD/Reflux, Hyperlipidemia, Osteoarthritis (OA), Pneumonia, Prostate Disorder Additional Past Medical History / Comment(s): SEVERE COPD, CHRONIC RESPIRATORY FAILURE, HOME O2 AT 2L/NC 16 HOURS A DAY, SOB AND GETS VERTIGO WITH IT, BILATERAL LOWER LEG/ANKLE EDEMA, CHRONIC LOW BACK PAIN WITH BILATERAL SCIATICA, History of Any Multi-Drug Resistant Organisms: None Reported Past Surgical History: Hernia Repair Additional Past Surgical History / Comment(s): BRONCHOSCOPIES/LAVAGES WITH LAST TIME DONE ON 05/29/17, R LOBECTOMY/THORACOTOMY, R INGUINAL HERNIA REPAIR, COLONOSCOPY IN 2002, BILATERAL CATARACT REMOVAL WITH LENS IMPLANTS, R TESTICLE REMOVED. Past Anesthesia/Blood Transfusion Reactions: Postoperative Nausea & Vomiting (PONV) Additional Past Anesthesia/Blood Transfusion Reaction / Comment(s): PT STATES WITH BRONCHOSCOPY 05/29/17 HE HAD PONV. PT HAS CLAUSTERPHOBIA. Past Psychological History: No Psychological Hx Reported Smoking Status: Former smoker Past Alcohol Use History: None Reported Past Drug Use History: None Reported - Past Family History Father Family Medical History: Hypertension, Seizure Disorder Mother Family Medical History: Cancer, Diabetes Mellitus Additional Family Medical History / Comment(s): breast cancer <Su Iverson M - Last Filed: 06/28/18 02:47> General Exam Limitations: physical limitation General appearance: alert, in no apparent distress, other (Physical well- developed, well-nourished elderly male patient in mild respiratory distress. Vital signs upon presentation are temperature 98.3F, pulse 105, respirations 24, blood pressure 157/83, pulse ox 94% on 2 L nasal cannula) Eye exam: Present: normal appearance, PERRL, EOMI. Absent: scleral icterus, conjunctival injection, periorbital swelling ENT exam: Present: normal exam, normal oropharynx, mucous membranes moist Respiratory exam: Present: decreased breath sounds (Bilateral). Absent: normal lung sounds bilaterally, respiratory distress, wheezes, rales, rhonchi, stridor Cardiovascular Exam: Present: normal rhythm, tachycardia, normal heart sounds. Absent: systolic murmur, diastolic murmur, rubs, gallop, clicks GI/Abdominal exam: Present: soft, normal bowel sounds. Absent: distended, tenderness, guarding, rebound, rigid Neurological exam: Present: alert, oriented X3, CN II-XII intact Psychiatric exam: Present: normal affect, normal mood Skin exam: Present: warm, dry, intact, normal color. Absent: rash <Su Iverson M - Last Filed: 06/28/18 02:47> Course Vital Signs 06/27/18 06/27/18 06/27/18 20:27 20:30 20:38 Temperature 98.3 F Pulse Rate 105 H 128 H Respiratory 24 20 19 Rate Blood Pressure 157/83 O2 Sat by Pulse 94 L Oximetry 06/27/18 06/27/18 06/27/18 20:40 20:50 21:00 Temperature Pulse Rate 100 102 H 101 H Respiratory 22 22 13 Rate Blood Pressure 177/82 177/82 O2 Sat by Pulse 93 L 95 94 L Oximetry 06/27/18 06/27/18 06/27/18 21:10 21:20 21:30 Temperature Pulse Rate 101 H 112 H 102 H Respiratory 16 12 19 Rate Blood Pressure 138/76 138/76 138/76 O2 Sat by Pulse 95 95 94 L Oximetry 06/27/18 06/27/18 06/27/18 21:40 21:50 22:00 Temperature Pulse Rate 94 94 91 Respiratory 19 19 18 Rate Blood Pressure 138/76 138/76 132/87 O2 Sat by Pulse 95 95 Oximetry 06/27/18 06/27/18 06/28/18 22:20 23:49 00:42 Temperature 98.6 F Pulse Rate 89 91 Respiratory 18 18 Rate Blood Pressure 138/76 138/87 O2 Sat by Pulse 94 L 98 Oximetry Medical Decision Making - Lab Data Result diagrams: 06/27/18 20:41 06/27/18 20:41 - EKG Data -: EKG Interpreted by Me - Radiology Data Radiology results: report reviewed, image reviewed <Su Iverson - Last Filed: 06/28/18 02:47> - Lab Data Result diagrams: 06/27/18 20:41 06/27/18 20:41 <Mag Vega - Last Filed: 06/30/18 08:11> - Medical Decision Making 77-year-old male patient presents to the emergency department today for evaluation of shortness of breath and upper back pain. Physical examination did reveal tenderness over the thoracic vertebra. Lungs were diminished witha thickened wheezing. Patient was wearing 2 L of nasal cannula with oxygen saturations between 94 and 98%. Labs reviewed and were unremarkable. Did perform CT angiography of the chest given evidence of tachycardia, stabbing back pain, and shortness of breath. CT showed no evidence for PE or dissection. Lungs exhibited emphysematous changes that are chronic. Patient also had evidence for T6 compression deformity of indeterminate age but new since previous scan in 2018. Patient also had worsening of lower thoracic compression deformities. Patient was given breathing treatment here in the emergency depart ment. Patient did admit that breathing becomes worse and pain intensifies. We did discuss the compression deformity as a cause for his symptoms. He was given multiple doses of pain medication here in the emergency department. Patient remains quite uncomfortable and does not feel couple being discharged home at this time. He will be admitted for intractable back pain, treatment for COPD, and evaluation by orthopedics. Patient verbalizes understanding and agrees with this plan. (Su Iverson) I was available for consultation in the emergency department. The history and physical exam were done by the midlevel provider. I was consulted for this patient's care. I reviewed the case with the midlevel provider and based on their presentation of the patient, I agree with the assessment, medical decision making and plan of care as documented. Chart was dictated using [employer] dictation software. Attempts were made to correct any dictation errors however some typographical errors may persist. (Mag Vega) - Lab Data Lab Results 06/27/18 06/27/18 06/27/18 Range/Units 20:41 20:41 20:41 WBC 9.3 (3.8-10.6) k/uL RBC 4.29 L (4.30-5.90) m/uL Hgb 13.3 (13.0-17.5) gm/dL Hct 41.4 (39.0-53.0) % MCV 96.6 (80.0-100.0) fL MCH 31.1 (25.0-35.0) pg MCHC 32.2 (31.0-37.0) g/dL RDW 14.6 (11.5-15.5) % Plt Count 239 (150-450) k/uL Neutrophils % 80 % Lymphocytes % 14 % Monocytes % 6 % Eosinophils % 0 % Basophils % 0 % Neutrophils # 7.4 (1.3-7.7) k/uL Lymphocytes # 1.3 (1.0-4.8) k/uL Monocytes # 0.6 (0-1.0) k/uL Eosinophils # 0.0 (0-0.7) k/uL Basophils # 0.0 (0-0.2) k/uL PT 9.6 (9.0-12.0) sec INR 0.9 (<1.2) APTT 21.0 L (22.0-30.0) sec Sodium 140 (137-145) mmol/L Potassium 4.8 (3.5-5.1) mmol/L Chloride 102 (98-107) mmol/L Carbon Dioxide 26 (22-30) mmol/L Anion Gap 12 mmol/L BUN 24 H (9-20) mg/dL Creatinine 0.96 (0.66-1.25) mg/dL Est GFR (CKD-EPI)AfAm 88 (>60 ml/min/1.73 sqM) Est GFR (CKD-EPI)NonAf 77 (>60 ml/min/1.73 sqM) Glucose 154 H (74-99) mg/dL POC Glucose (mg/dL) (75-99) mg/dL POC Glu Sr Vice President ID Calcium 9.9 (8.4-10.2) mg/dL Magnesium 2.2 (1.6-2.3) mg/dL Total Bilirubin 0.6 (0.2-1.3) mg/dL AST 23 (17-59) U/L ALT 26 (21-72) U/L Alkaline Phosphatase 79 (38-126) U/L Troponin I (0.000-0.034) ng/mL Total Protein 6.9 (6.3-8.2) g/dL Albumin 4.3 (3.5-5.0) g/dL 06/27/18 06/28/18 Range/Units 20:41 11:52 WBC (3.8-10.6) k/uL RBC (4.30-5.90) m/uL Hgb (13.0-17.5) gm/dL Hct (39.0-53.0) % MCV (80.0-100.0) fL MCH (25.0-35.0) pg MCHC (31.0-37.0) g/dL RDW (11.5-15.5) % Plt Count (150-450) k/uL Neutrophils % % Lymphocytes % % Monocytes % % Eosinophils % % Basophils % % Neutrophils # (1.3-7.7) k/uL Lymphocytes # (1.0-4.8) k/uL Monocytes # (0-1.0) k/uL Eosinophils # (0-0.7) k/uL Basophils # (0-0.2) k/uL PT (9.0-12.0) sec INR (<1.2) APTT (22.0-30.0) sec Sodium (137-145) mmol/L Potassium (3.5-5.1) mmol/L Chloride (98-107) mmol/L Carbon Dioxide (22-30) mmol/L Anion Gap mmol/L BUN (9-20) mg/dL Creatinine (0.66-1.25) mg/dL Est GFR (CKD-EPI)AfAm (>60 ml/min/1.73 sqM) Est GFR (CKD-EPI)NonAf (>60 ml/min/1.73 sqM) Glucose (74-99) mg/dL POC Glucose (mg/dL) 120 H (75-99) mg/dL POC Glu Sr Vice President ID Christie Gifford Calcium (8.4-10.2) mg/dL Magnesium (1.6-2.3) mg/dL Total Bilirubin (0.2-1.3) mg/dL AST (17-59) U/L ALT (21-72) U/L Alkaline Phosphatase (38-126) U/L Troponin I <0.012 (0.000-0.034) ng/mL Total Protein (6.3-8.2) g/dL Albumin (3.5-5.0) g/dL - EKG Data EKG Comments: EKG interpreted at 2041 shows sinus tachycardia with a ventricular rate of 109, IL interval 144, QRS duration 72, QT 326, QTc 439. No evidence of ST elevation or depression. (Su Iverson) - Radiology Data CT angiography of the chest was obtained. Report was reviewed in its entirety. Impression by Dr. Sam shows no evidence of acute pulmonary embolism. No thoracic aortic aneurysm or evidence of dissection. Extensive bullous pulmonary emphysema. Small approximate 5 mm right base pulmonary nodule, unchanged since CT of 07/10/2017. Multiple thoracic and upper lumbar vertebral compression fracture some of which are new or demonstrate progressive compression as discussed in the body of the report. (Su Iverson) Disposition Decision to Admit Reason: Admit from EC Decision Date: 06/28/18 Decision Time: 00:13 <Su Iverson - Last Filed: 06/28/18 02:47> <Mag Vega - Last Filed: 06/30/18 08:11> Clinical Impression: Intractable back pain, Compression fracture of T6 vertebra, COPD (chronic obstructive pulmonary disease) Disposition: ADMITTED IP TO THIS [facility] Condition: Serious
--- NOTE | 2018-06-27 23:07 | CT ---
ADDENDUM - Added by Sean Sam MD on 06/27/2018 11:12 PM (-04:00) Additional impression: Moderate size hiatal hernia. EXAM: CT Angiography Chest With Intravenous Contrast CLINICAL HISTORY: ITS.REASON CT Reason: Pain TECHNIQUE: Axial computed tomographic angiography images of the chest with intravenous contrast using pulmonary embolism protocol. CTDI is 12.2 mGy and DLP is 394 mGy-cm. This CT exam was performed using one or more of the following dose reduction techniques: automated exposure control, adjustment of the mA and/or kV according to patient size, and/or use of iterative reconstruction technique. MIP reconstructed images were created and reviewed. COMPARISON: CT chest 07/10/2017 FINDINGS: Pulmonary arteries: No evidence of acute pulmonary embolism. Aorta: No thoracic aortic aneurysm or evidence of dissection. Lungs: Advanced pulmonary emphysema with prominent bullous changes throughout both lungs. No evidence of acute pulmonary parenchymal disease or consolidation. Mild bibasilar dependent subsegmental atelectasis approximately 5 mm right base pulmonary nodule, unchanged since 07/10/2017. Pleural space: No evidence of pleural effusion or pneumothorax. Heart: Heart size is within normal limits. Coronary arterial calcifications. No significant pericardial effusion. Mediastinum: Moderate size hiatal hernia. Bones/joints: Moderate T6 vertebral compression fracture which is of indeterminate age, but is a new since CT 07/10/2017. Chronic mild T11 and T12 vertebral compression fractures not significantly changed since CT 07/10/2017. Moderate L1 vertebral compression fracture demonstrating interval progressive compression since CT 07/10/2017. . Lymph nodes: No pathologically enlarged lymphadenopathy. Kidneys and ureters: Bilateral renal cysts with partially imaged large left renal cyst measuring up to 12.0 cm. IMPRESSION: No evidence of acute pulmonary embolism. No thoracic aortic aneurysm or evidence of dissection. Extensive bullous pulmonary emphysema. Small approximately 5 mm right base pulmonary nodule, unchanged since CT 07/10/2017. Multiple thoracic and upper lumbar vertebral compression fractures some of which are new or demonstrate progressive compression as discussed in body of report.
[2018-06-27] MEDS ORDERED: HYDROmorphone 1 MG/ML 1 ML SYRINGE IVP STA (23:27)
[2018-06-27] MEDS ORDERED: IPRATROPIUM-ALBUTEROL 3 ML NEB INHALATION STA (23:27)
[2018-06-27] MEDS ORDERED: ONDANSETRON 4 MG/2 ML VIAL IVP PRN (23:57)
[2018-06-27] MEDS ORDERED: NALOXONE 0.4 MG/ML 1 ML VIAL IV PRN (23:57)
[2018-06-28] MEDS ORDERED: IPRATROPIUM-ALBUTEROL 3 ML NEB INHALATION PRN (00:07)
[2018-06-28] MEDS ORDERED: LIDOCAINE 5% PATCH TOPICAL STA (00:09)
[2018-06-28] MEDS: IPRATROPIUM-ALBUTEROL 3 ML NEB INHALATION SCH ×6 (04:22→23:33)
[2018-06-28] MEDS: HYDROmorphone 1 MG/ML 1 ML SYRINGE IVP PRN ×3 (04:40→11:21)
[2018-06-28] MEDS: SYMBICORT 160-4.5 MCG INHALER INHALATION SCH ×2 (09:21→20:47)
[2018-06-28] MEDS ORDERED: FORMOTEROL FUMARATE 20 MCG/2 ML NEBU INHALATION SCH (10:27)
[2018-06-28] MEDS: methylPREDNISolone SOD SUCCI 40 MG/ML 1 ML VIAL IV SCH ×2 (11:21→16:04)
[2018-06-28] MEDS: FUROSEMIDE 40 MG TAB PO SCH (11:21)
[2018-06-28] MEDS: LIDOCAINE 5% PATCH TOPICAL SCH (11:31)
[2018-06-28 11:59] LABS: Glucose,Whole Blood 120 mg/dL (75-99)
[2018-06-28] MEDS: INSULIN ASPART (NovoLOG) 100 UNIT/ML VIAL SQ SCH ×3 (12:56→21:26)
[2018-06-28] MEDS: BACLOFEN 10 MG TAB PO SCH ×3 (15:12→21:27)
[2018-06-28] MEDS: NAPROXEN 250 MG TAB PO SCH ×2 (15:12→19:53)
--- NOTE | 2018-06-28 15:40 | XR ---
Lumbar spine HISTORY: Low back pain 3 views of the lumbar spine correlated to prior lumbar spine 07/08/2017, CT lumbar spine 07/10/2017 Findings are similar. Superior endplate fracture at L1 is again noted similar appearance. Bone minera lization is reduced. Kyphosis centered at T12-L1. Sclerosis present in the posterior elements of the lumbar spine. Loss of disc height L4-5. There is multilevel spondylosis. Mild spinal curvature is aga in seen. Dense vascular calcifications present within the aorta. IMPRESSION: Essentially stable exam. Stable superior endplate depression at L1. Degenerative disc dis ease, facet arthropathy. Osteopenia.
--- NOTE | 2018-06-28 16:48 | P.CNOR ---
History of Present Illness - [facility] Consult date: 06/28/18 Requesting physician: Jose Catherine Consult reason: fracture (Acute T6 compression fracture deformity), back pain ( Thoracic back pain) History of present illness: Patient is a pleasant 77-year-old male who is seen at bedside for further evaluation in regards to his acute thoracic back pain. Patient states approximately 5 days ago he was standing in his kitchen when he started to experience significant pain and difficulty with breathing. He has pain centered along the mid thoracic spine that has been severe and debilitating. His symptoms continue to worsen with next several days. He felt his symptoms were related to his breathing and he presented to emergency department for further evaluation. Imaging taking the emergency department did show evidence of acute T6 compression fracture deformity. He is known have compression fracture deformities at T11, T12, and L1. He is known to have COPD and previously underwent surgical intervention in his right lung. He states he currently has approximately 30% lung function. He is currently on O2 nasal cannula. Patient states he has been experiencing some increased thoracic back pain that is worse with activities. He states he was previously diagnosed with thoracolumbar compression fracture deformities and fitted with a brace. He states he was unhappy with this brace as it fell apart shortly after delivery and it did not provide any benefit in terms of his pain. He states this was approximately 1 year ago. He states he does not want bracing for his new fracture. He states he does have some chronic low back pain with pain rating over the anterior thighs to the knees. His symptoms have not had any change afternoon exacerbation of his recent symptoms. Patient has been seen and examined by medicine during his admission. He is currently receiving Windsor 10 mg/325 mg, baclofen 5 mg, lidocaine patch 5%, and prednisone 40 mg as prescribed for some control of his symptoms. He does have a significant medical history which includes severe COPD, chronic respiratory failure, home oxygen, shortness of b reath, and chronic low back pain with bilateral lower extremity radiculopathy. Past Medical History Past Medical History: COPD, GERD/Reflux, Hyperlipidemia, Osteoarthritis (OA), Pneumonia, Prostate Disorder Additional Past Medical History / Comment(s): SEVERE COPD, CHRONIC RESPIRATORY FAILURE, HOME O2 AT 2L/NC 16 HOURS A DAY, SOB AND GETS VERTIGO WITH IT, BILATERAL LOWER LEG/ANKLE EDEMA, CHRONIC LOW BACK PAIN WITH BILATERAL SCIATICA, History of Any Multi-Drug Resistant Organisms: None Reported Past Surgical History: Hernia Repair Additional Past Surgical History / Comment(s): BRONCHOSCOPIES/LAVAGES WITH LAST TIME DONE ON 05/29/17, R LOBECTOMY/THORACOTOMY, R INGUINAL HERNIA REPAIR, COLONOSCOPY IN 2002, BILATERAL CATARACT REMOVAL WITH LENS IMPLANTS, R TESTICLE REMOVED. Past Anesthesia/Blood Transfusion Reactions: Postoperative Nausea & Vomiting (PONV) Additional Past Anesthesia/Blood Transfusion Reaction / Comm: PT STATES WITH BRONCHOSCOPY 05/29/17 HE HAD PONV. PT HAS CLAUSTERPHOBIA. Past Psychological History: No Psychological Hx Reported Smoking Status: Former smoker Past Alcohol Use History: None Reported Past Drug Use History: None Reported - Past Family History Father Family Medical History: Hypertension, Seizure Disorder Mother Family Medical History: Cancer, Diabetes Mellitus Additional Family Medical History / Comment(s): breast cancer Medications and Allergies Home Medications Medication Instructions Recorded Confirmed Type Atorvastatin [Lipitor] 20 mg PO HS 03/19/17 06/27/18 History Budesonide-Formot 160-4.5 Mcg 2 puff INHALATION RT-BID 03/19/17 06/27/18 History [Symbicort 160-4.5 Mcg Inhaler] Ipratropium-Albuterol Nebulize 3 ml INHALATION RT-QID PRN 03/19/17 06/27/18 History [Duoneb 0.5 mg-3 mg/3 ml Soln] Ipratropium/Albuterol Sulfate 1 puff INHALATION RT-QID PRN 03/19/17 06/27/18 History [Combivent Respimat Inhaler] HYDROcodone/APAP 10-325MG [Windsor 1 tab PO HS 07/08/17 06/27/18 History 10-325] Furosemide [Lasix] 40 mg PO DAILY #30 tablet 07/11/17 06/27/18 Rx Potassium 99 mg PO DAILY 06/27/18 06/27/18 History Tamsulosin [Flomax] 0.4 mg PO HS 06/27/18 06/27/18 History Tiotropium 18 Mcg/Puff [Spiriva] 1 cap INHALATION RT-DAILY 06/27/18 06/27/18 History Allergies Allergy/AdvReac Type Severity Reaction Status Date / Time gabapentin Allergy Confusion Verified 06/27/18 20:49 levofloxacin [From Levaquin] Allergy Unknown Verified 06/27/18 20:49 Physical Examination Physical exam: Patient is awake, alert, and oriented 3 Vital signs stable Good chest excursion with deep inspiration and expiration Examination of thoracic and lumbar spine reveals skin is intact with no abrasions, lacerations, or bruises; no erythema, purulence or signs of infection Significant pain with palpation along the midline of the mid thoracic spine No pain with palpation along the midline of the lumbar spine or at the lumbosacral junction Evidence of a well-healed incision over the right lower ribs from previous surgical intervention Dorsiflexion, plantarflexion, and extensor hallucis longus positive sustained bilaterally Lower extremity strength 5/5 bilaterally Straight leg test negative bilateral lower extremities No signs or symptoms of DVT; no calf pain Neurovascularly intact Results Pertinent studies: CT of the chest taken on 06/27/2018: T6 wedging compression fracture deformity with approximately 50% height loss which is age indeterminate but new as compared to previous CT imaging taken on 07/10/2017; chronic compression fracture deformities at T11 and T12 without significant change as compared to previous CT taken on 07/10/2017; moderate L1 vertebral body compression fracture with approximately 20% height loss redemonstrated with some interval progression as compared to previous study taken on 07/10/2017; extensive bulbous pulmonary emphysema; no evidence of acute pulmonary embolism X-rays of the lumbar spine taken on 06/28/2018: Bone demineralization; L4-5 degenerative disc disease; multilevel spondylosis; mild scoliotic curvature; superior endplate compression fracture deformity at L1 with approximately 20% height loss which appears stable as compared to previous imaging - Labs Labs: Abnormal Lab Results - Last 24 Hours (Table) 06/27/18 06/27/18 06/27/18 Range/Units 20:41 20:41 20:41 RBC 4.29 L (4.30-5.90) m/uL APTT 21.0 L (22.0-30.0) sec BUN 24 H (9-20) mg/dL Glucose 154 H (74-99) mg/dL POC Glucose (mg/dL) (75-99) mg/dL 06/28/18 Range/Units 11:52 RBC (4.30-5.90) m/uL APTT (22.0-30.0) sec BUN (9-20) mg/dL Glucose (74-99) mg/dL POC Glucose (mg/dL) 120 H (75-99) mg/dL H & H 06/27/18 Range/Units 20:41 Hgb 13.3 (13.0-17.5) gm/dL Hct 41.4 (39.0-53.0) % Coagulation 06/27/18 Range/Units 20:41 INR 0.9 (<1.2) Result Diagrams: 06/27/18 20:41 06/27/18 20:41 Assessment and Plan Assessment: Assessment: Acute intractable thoracic back pain Acute T6 wedging compression fracture deformity Chronic compression fracture deformities at T11, T12, L1 Low back pain Lumbar degenerative disc disease Lumbar facet arthropathy Lower extremity radiculopathy Severe COPD requiring home O2 History of previous right lung surgery Approximately 30% lung function (1) T12 compression fracture Current Visit: Yes Status: Acute Code(s): S22.080A - WEDGE COMPRESSION F RACTURE OF T11-T12 VERTEBRA, INIT SNOMED Code(s): 041415215 (2) Compression fracture of T11 vertebra Current Visit: Yes Status: Acute Code(s): S22.080A - WEDGE COMPRESSION FRAC TURE OF T11-T12 VERTEBRA, INIT SNOMED Code(s): 572210138 (3) Nontraumatic compression fracture of T6 vertebra Current Visit: Yes Status: Acute Code(s): M48.54XA - COLLAPSED VERTEBRA, NEC, THORACIC REGION, INIT SNOMED Code(s): 625401392 (4) Lumbar degenerative disc disease Current Visit: Yes Status: Acute Code(s): M51.36 - OTHER INTERVERTEBRAL DISC DEGENERATION, LUMBAR REGION SNOMED Code(s): 64316308 (5) Lumbar facet arthropathy Current Visit: Yes Status: Acute Code(s): M47.816 - SPONDYLOSIS W/O MYELOPATHY OR RADICULOPATHY, LUMBAR REGION SNOMED Code(s): 490652367 (6) On home O2 Current Visit: Yes Status: Acute Code(s): Z99.81 - DEPENDENCE ON SUPPLEMENTAL OXYGEN SNOMED Code(s): 089520934330 (7) History of lung surgery Current Visit: Yes Status: Acute Code(s): Z98.890 - OTHER SPECIFIED POSTPROCEDURAL STATES SNOMED Code(s): 912251448 (8) COPD (chronic obstructive pulmonary disease) Current Visit: Yes Status: Acute Code(s): J44.9 - CHRONIC OBSTRUCTIVE PULMONARY DISEASE, UNSPECIFIED SNOMED Code(s): 75082313 (9) Intractable back pain Current Visit: Yes Status: Acute Code(s): M54.9 - DORSALGIA, UNSPECIFIED S NOMED Code(s): 428616368 (10) Compression fracture of L1 lumbar vertebra Current Visit: No Status: Acute Code(s): S32.010A - WEDGE COMPRESSION FRACTURE OF FIRST LUMBAR VERTEBRA, INIT SNOMED Code(s): 973529818 Plan: Plan: 1. After reviewing of imaging, physical examination the patient, and further discussion with the patient, will currently planned to continue with conservative treatment at this time. Patient does have evidence of acute T6 compression fracture deformity and is experiencing significant thoracic back pain. We discussed bracing in significant detail. He states due to previous bracing without any significant improvement or control of his symptoms and an inadequate brace, he would like to avoid bracing at this time. We discussed he should avoid excessive bending, twisting, lifting; no lifting greater than 10 pounds. We discussed we'll plan to see him in outpatient setting approximately 2 weeks for further evaluation. If his thoracic back pain is not improving at that time we may re-discussed the possibility of bracing, discussed the possibility of kyphoplasty, or may continue to try conservative treatment without bracing depending on the severity of the symptoms. Patient feels this is a good plan of care. Patient is clear for discharge from an orthopedic spine standpoint. Following discharge, patient may follow-up with Nils García PA-C or Dr. Vince Coburn at [facility]. 2. Patient will continue be seen and examined by medicine. Time with Patient: Greater than 30 (Including obtaining history, physical examination, reviewing of imaging, and dictation.)
[2018-06-28 17:24] LABS: Glucose,Whole Blood 210 mg/dL (75-99)
[2018-06-28 20:54] LABS: Glucose,Whole Blood 179 mg/dL (75-99)
[2018-06-28] MEDS ORDERED: HYDROcodone/APAP 10-325MG 1 EACH TAB PO SCH (21:00)
[2018-06-28] MEDS ORDERED: ATORVASTATIN 20 MG TAB PO SCH (21:00)
[2018-06-28] MEDS ORDERED: TAMSULOSIN 0.4 MG CAP.ER.24H PO SCH (21:00)
[2018-06-28] MEDS: ENOXAPARIN 40 MG/0.4 ML SYRINGE SQ SCH (21:26)
[2018-06-28] MEDS: PSYLLIUM HUSK 100% 6 GM PACKET PO SCH (21:27)
--- NOTE | 2018-06-28 23:26 | HP ---
HISTORY AND PHYSICAL DATE OF ADMISSION: 06/28/2018 DATE OF SERVICE: 06/28/2018 PRESENTING COMPLAINT: Severe back pain. HISTORY OF PRESENTING COMPLAINT: A very pleasant 77-year-old patient of Dr. Esquivel out of [place]. Chronic stable medical conditions include hyperlipidemia, GERD, chronic hypoxic respiratory failure on 2 L and chronic obstructive pulmonary disease. The patient has been having increasing pain in the lower back going across for about 10 days. Last 4 days became rather severe and really incapacitating him. No change in his bowel or urine pattern. The patient also gets pain in the lower back, sometimes radiating down the legs. The patient is short of breath. Got a very slight cough. No fever. No chills. Wheezing at baseline. Because of the back pain, he decided to come in. Patient has a brace at home and is admitted for the same. REVIEW OF SYSTEMS: CONSTITUTIONAL: Tired. HEENT: None. RESPIRATORY: As above. CARDIOVASCULAR: None. GASTROINTESTINAL: Heartburn. GENITOURINARY: None. MUSCULOSKELETAL as above and pain in the joints. DERMATOLOGICAL, HEMATOLOGIC, LYMPHATICS: none. PSYCHIATRY none. NEUROLOGICAL: None. PAST MEDICAL HISTORY: COPD, GERD, hyperlipidemia, osteoarthritis, pneumonia, home oxygen 2 L, bilateral lower extremity edema, chronic low back pain with bilateral sciatica. PAST SURGICAL HISTORY: Bronchoscopy, lavage, right lobectomy, thoracotomy, right inguinal hernia repair, bilateral cataract removal with lens implant, right testicle removed. SOCIAL HISTORY: The patient used to work in a factory with welding and paint. Smoked for about 40 years, stopped in 2004. . FAMILY HISTORY: Of hypertension seizure, breast cancer. HOME MEDICATIONS: 1. Spiriva 1 capsule daily. 2. Flomax 0.4 mg p.o. q.h.s. 3. Potassium 99 mg p.o. daily. 4. Combivent 1 puff q.i.d. p.r.n. 5. DuoNeb q.i.d. p.r.n. 6. Dundee 10 1 tablet p.o. q.h.s. 7. Lasix 40 mg p.o. daily. 8. Symbicort 160/4.5, 2 puffs b.i.d. 9. Lipitor 20 mg q.h.s. ALLERGIES: TO GABAPENTIN AND LEVAQUIN. PHYSICAL EXAMINATION: VITAL SIGNS: Vital signs on presentation: Temperature 98.3, pulse 105, respiration 20, blood pressure 157/83, pulse ox 94 percent on 2 L. GENERAL APPEARANCE: Average built, sitting up, somewhat uncomfortable, sitting at the edge of the bed. EYES: Pupils equal. Conjunctivae normal. HEENT: External appearance of nose and ears normal. Oral cavity normal. NECK: JVD not raised. Mass not palpable. RESPIRATORY: Effort normal. LUNGS: Diminished breath sounds. Mild wheezing. CARDIOVASCULAR: First and second sounds normal. Some edema present. ABDOMEN: Soft, nontender. Liver and spleen not palpable. LYMPHATIC: No lymph nodes palpable in the neck and axilla. PSYCHIATRY: Alert and oriented x3. Mood and affect normal. NEUROLOGICAL: Pupils equal. Cranial nerves grossly intact. Reflexes are equal. MUSCULOSKELETAL: There is tenderness over the lower lumbar spine. INVESTIGATIONS: White count 9.3, hemoglobin 13.3, potassium 4.8, BUN 24, creatinine 0.96. Accu-Cheks are noted. Chest CTA shows multiple thoracic and upper lumbar vertebral compression fracture, some of which are new. No PE. ASSESSMENT: 1. New compression fracture of T6 and L1 and chronic fractures of multiple level causing acute presentation. 2. Bilateral sciatica including causing radiculopathy. 3. Chronic obstructive pulmonary disease, mild exacerbation in an ex-smoker. 4. Hyperlipidemia. 5. Primary osteoarthritis. 6. Gastroesophageal reflux disease. 7. Chronic hypoxic respiratory failure on 2 L oxygen. PLAN: I had ordered a lumbar x-ray spine earlier which I reviewed later. For the patient's pain control, did add NSAIDs and also ads baclofen and also add Tylenol around the clock. Also give patient steroids both for the back pain and for the COPD component. I also consulted Dr. Coburn from Orthopedics. Did tell patient that conservative management will be appropriate. The patient also to use his brace when active. We will get an opinion from Dr. Villarreal's team, which probably will be conservative. Copy to Dr. Esquivel in [place]. MMRAIMUNDOL / ELY: [id number] /
[2018-06-29] MEDS: IPRATROPIUM-ALBUTEROL 3 ML NEB INHALATION SCH ×3 (03:38→10:59)
[2018-06-29] MEDS: SYMBICORT 160-4.5 MCG INHALER INHALATION SCH (06:58)
[2018-06-29 07:06] LABS: Glucose,Whole Blood 132 mg/dL (75-99)
[2018-06-29] MEDS: BACLOFEN 10 MG TAB PO SCH ×2 (08:33→12:15)
[2018-06-29] MEDS: NAPROXEN 250 MG TAB PO SCH ×2 (08:33→15:15)
[2018-06-29] MEDS: FUROSEMIDE 40 MG TAB PO SCH (08:33)
[2018-06-29] MEDS: LIDOCAINE 5% PATCH TOPICAL SCH (08:34)
[2018-06-29] MEDS: INSULIN ASPART (NovoLOG) 100 UNIT/ML VIAL SQ SCH ×2 (08:34→12:15)
[2018-06-29] MEDS: ENOXAPARIN 40 MG/0.4 ML SYRINGE SQ SCH ×2 (08:34→08:40)
[2018-06-29] MEDS: PSYLLIUM HUSK 100% 6 GM PACKET PO SCH (08:35)
[2018-06-29] MEDS ORDERED: predniSONE 20 MG TAB PO SCH (09:00)
[2018-06-29 12:07] LABS: Glucose,Whole Blood 159 mg/dL (75-99)
[2018-06-29 13:15] VITALS: BP 136/67; PULSE 97; RESP 18; TEMP 97.7
--- NOTE | 2018-07-01 11:09 | DS ---
DISCHARGE SUMMARY DATE OF ADMISSION: June 28, 2018. DATE OF DISCHARGE: June 29, 2018. FINAL DIAGNOSES: 1. Acute compression fracture of T6 and L1 and chronic fractures of multiple levels causing acute lower back pain with radiculopathy. 2. Bilateral sciatica. 3. Chronic obstructive pulmonary disease exacerbation in an ex-smoker. 4. Hyperlipidemia. 5. Primary osteoarthritis. 6. Gastroesophageal reflux disease. 7. Chronic hypoxic respiratory failure on 2 L oxygen. CONSULTATION: Dr. Villarreal from Orthopedics. HOSPITAL COURSE: This patient presented with acute on chronic back pain, lumbar spine and chest CT did confirm acute fracture on the above vertebra and chronic in other. The patient also had radiculopathy. Patient was put on steroids, baclofen NSAIDs. The pain is significantly improved. The patient does have a brace at soft brace at home. Also treated for COPD exacerbation. Doing better at the time of discharge. On the day of discharge, care was discussed in detail with the patient. Questions were answered. The patient is doing better Discussion and discharge planning more than 35 minutes. PHYSICAL EXAMINATION: Temperature 97.3, pulse 77, respiratory 18, blood pressure 136/67. Lungs improved air entry. Accu-Cheks are noted. DISCHARGE MEDICATIONS: 1. Lipitor 20 mg q.h.s. 2. Symbicort 160/4.5, 2 puffs b.i.d. 3. Combivent 1 puff q.i.d. p.r.n. 4. Pocola 10 1 tab q.h.s. 5. Lasix 40 mg p.o. daily. 6. Potassium 1 tablet daily. 7. Flomax 0.4 mg q.h.s. 8. Baclofen 5 mg q.6h p.r.n. 9. DuoNeb q.i.d. 10.Naproxen 500 mg q.12h, 20 tablets. 11.Metamucil 6 grams p.o. b.i.d. 12.Prednisone taper. FOLLOW UP: Follow up with Nils on 07/20/2018. Follow up with Dr. Esquivel in [place] on 07/06/2018. Other instructions as given by Dr. Coburn. Discussion and discharge planning more than [address] Esquivel, [place]. MMODL / IJN: [id number] /
== END 2018-06-29 15:46 | disposition home or self-care (01) | DRG 543 ==
LOC: EC 20:18 → 4MS4W 06-28 00:01 → OBSVTOIN 06-28 13:48
PROVIDERS: ADMIT Hospitalist; ATTEND Hospitalist
DX: M48.54XA Collapsed vertebra, not elsewhere classified, thoracic region, initial encounter for fracture (principal); M51.06 Intervertebral disc disorders with myelopathy, lumbar region; J44.1 Chronic obstructive pulmonary disease with (acute) exacerbation; J96.11 Chronic respiratory failure with hypoxia; M48.56XA Collapsed vertebra, not elsewhere classified, lumbar region, initial encounter for fracture; Z79.51 Long term (current) use of inhaled steroids; Z79.899 Other long term (current) drug therapy; Z80.3 Family history of malignant neoplasm of breast; Z82.0 Family history of epilepsy and other diseases of the nervous system; M46.96 Unspecified inflammatory spondylopathy, lumbar region; E78.5 Hyperlipidemia, unspecified; G89.29 Other chronic pain; Z87.891 Personal history of nicotine dependence; K21.9 Gastro-esophageal reflux disease without esophagitis; Z82.49 Family history of ischemic heart disease and other diseases of the circulatory system; Z83.3 Family history of diabetes mellitus; Z90.79 Acquired absence of other genital organ(s); Z96.1 Presence of intraocular lens; Z98.41 Cataract extraction status, right eye; Z98.42 Cataract extraction status, left eye; Z99.81 Dependence on supplemental oxygen; Z87.01 Personal history of pneumonia (recurrent); Z90.2 Acquired absence of lung [part of]; M54.32 Sciatica, left side; M54.31 Sciatica, right side; Z88.1 Allergy status to other antibiotic agents; Z88.8 Allergy status to other drugs, medicaments and biological substances
CPT/HCPCS: 36415; 71275; 72100; 80053; 83735; 84484; 85025; 85610; 85730; 93005; 94640; 94760; 96374; 96375; 99285

== ENCOUNTER 2018-07-02 00:47 | Inpatient (IN) | payer MEDICARE ==
[2018-07-02] MEDS ORDERED: HYDROmorphone 1 MG/ML 1 ML SYRINGE IVP STA (01:22)
[2018-07-02] MEDS ORDERED: ONDANSETRON 4 MG/2 ML VIAL IVP STA (01:23)
--- NOTE | 2018-07-02 01:55 | XR ---
EXAM: XR Chest, 2 Views CLINICAL HISTORY: ITS.REASON XR Reason: difficulty breathing TECHNIQUE: Frontal and lateral views of the chest. COMPARISON: No relevant prior studies available. FINDINGS: Lungs: Possible right lower lobe infiltrate. Pleural space: Unremarkable. No pneumothorax. Heart: No suspicious enlargement. Mediastinum: Unremarkable. Bones/joints: No acute fracture. IMPRESSION: Possible right lower lobe infiltrate.
[2018-07-02 01:56] LABS: Basophils % (A) 0 %; Eosinophils # (A) 0.1 k/uL (0-0.7); Eosinophils % (A) 1 %; HCT 38.9 % (39.0-53.0); HGB 12.7 gm/dL (13.0-17.5); Lymphocytes % (A) 17 %; MCH 31.6 pg (25.0-35.0); MCHC 32.7 g/dL (31.0-37.0); MCV 96.5 fL (80.0-100.0); Mean Platelet Volume 6.4; Monocytes # (A) 0.6 k/uL (0-1.0); Monocytes % (A) 5 %; Neutrophils # (A) 8.6 k/uL (1.3-7.7); Neutrophils % (A) 75 %; Platelet Count 243 k/uL (150-450); RBC 4.03 m/uL (4.30-5.90); RDW 13.9 % (11.5-15.5); WBC 11.4 k/uL (3.8-10.6)
[2018-07-02 02:08] LABS: ALT 30 U/L (21-72); AST 24 U/L (17-59); Alkaline Phosphatase 95 U/L (38-126); Anion Gap 8 mmol/L; Blood Urea Nitrogen 29 mg/dL (9-20); Calcium 9.6 mg/dL (8.4-10.2); Carbon Dioxide 30 mmol/L (22-30); Chloride 103 mmol/L (98-107); Glucose 110 mg/dL (74-99); Potassium 4.1 mmol/L (3.5-5.1); Sodium 141 mmol/L (137-145); Total Bilirubin 0.8 mg/dL (0.2-1.3); Total Protein 6.5 g/dL (6.3-8.2)
[2018-07-02 02:12] LABS: INR 0.9 (<1.2); Prothrombin Time 9.7 sec (9.0-12.0)
[2018-07-02 02:14] LABS: Partial Thromboplastin Time 21.3 sec (22.0-30.0)
[2018-07-02] MEDS ORDERED: ALBUTEROL NEBULIZED 2.5 MG/3 ML INHALATION PRN (02:54)
[2018-07-02] MEDS ORDERED: TOBRAMYCIN PER PHARMACY MISCELLANE PRN (02:54)
[2018-07-02] MEDS ORDERED: PNEUMONIA PROTOCOL UTILIZED 1 EACH MISC PO PRN (02:54)
[2018-07-02] MEDS ORDERED: PIPERACILLIN-TAZOBACTAM 3.375 GM in SODIUM CHLORIDE 0.9% 100 ML IVPB STA (02:54)
[2018-07-02] MEDS ORDERED: AZITHROMYCIN 500 MG in SODIUM CHLORIDE 0.9% 250 ML IVPB STA (02:54)
[2018-07-02] MEDS ORDERED: BACLOFEN 10 MG TAB PO PRN (03:00)
--- NOTE | 2018-07-02 03:14 | ED ---
SOB HPI - General Chief Complaint: Shortness of Breath Stated Complaint: Back Pain Time Seen by Provider: 07/02/18 00:58 Source: patient Mode of arrival: ambulatory Limitations: no limitations - History of Present Illness Initial Comments: 77-year-old male patient with past medical history significant for COPD and recent diagnosis of the T6 compression fracture, presents to the emergency department today for evaluation of increasing shortness of breath and upper back pain. Patient was seen and evaluated here several days ago and admitted to the hospital for new T6 compression deformity, intractable pain, and COPD. Patient was discharged home on 06/29/2018. Patient states that he has been having difficulty managing his pain despite increasing frequency of his [place]. Patient states today he developed some shortness of breath. States he does have a cough with no sputum production. No hemoptysis. Denies any fever or chills. He does wear 2 L of oxygen via nasal cannula at home. Denies any chest pain, nausea, or vomiting. Denies any sweats with this. Patient denies any recent rash, abdominal pain, diarrhea, constipation, numbness, tingling, dizziness, weakness, hematuria, dysuria, urinary urgency, urinary frequency, headache, visual changes, or any other complaints. - Related Data Home Medications Medication Instructions Recorded Confirmed Atorvastatin [Lipitor] 20 mg PO HS 03/19/17 06/27/18 Budesonide-Formot 160-4.5 Mcg 2 puff INHALATION RT-BID 03/19/17 06/27/18 [Symbicort 160-4.5 Mcg Inhaler] Ipratropium/Albuterol Sulfate 1 puff INHALATION RT-QID PRN 03/19/17 06/27/18 [Combivent Respimat Inhaler] HYDROcodone/APAP 10-325MG [[place] 1 tab PO HS 07/08/17 06/27/18 10-325] Potassium 99 mg PO DAILY 06/27/18 06/27/18 Tamsulosin [Flomax] 0.4 mg PO HS 06/27/18 06/27/18 Previous Rx's Medication Instructions Recorded Furosemide [Lasix] 40 mg PO DAILY #30 tablet 07/11/17 Baclofen [Lioresal] 5 mg PO Q6H PRN #30 tab 06/29/18 Ipratropium-Albuterol Nebulize 3 ml INHALATION QID #120 ampul.neb 06/29/18 [Duoneb 0.5 mg-3 mg/3 ml Soln] Naproxen [Naprosyn] 500 mg PO Q12HR #20 tab 06/29/18 Psyllium Husk 100% [Metamucil 6 gm PO BID packet 06/29/18 Packet] predniSONE 10 mg PO DAILY #30 tab 06/29/18 Allergies Allergy/AdvReac Type Severity Reaction Status Date / Time gabapentin Allergy Confusion Verified 07/02/18 00:52 levofloxacin [From Levaquin] Allergy Unknown Verified 07/02/18 00:52 Review of Systems ROS Statement: Those systems with pertinent positive or pertinent negative responses have been documented in the HPI. ROS Other: All systems not noted in ROS Statement are negative. Past Medical History Past Medical History: COPD, GERD/Reflux, Hyperlipidemia, Osteoarthritis (OA), Pneumonia, Prostate Disorder Additional Past Medical History / Comment(s): SEVERE COPD, CHRONIC RESPIRATORY FAILURE, HOME O2 AT 2L/NC 16 HOURS A DAY, SOB AND GETS VERTIGO WITH IT, BILATERAL LOWER LEG/ANKLE EDEMA, CHRONIC LOW BACK PAIN WITH BILATERAL SCIATICA, History of Any Multi-Drug Resistant Organisms: None Reported Past Surgical History: Hernia Repair Additional Past Surgical History / Comment(s): BRONCHOSCOPIES/LAVAGES WITH LAST TIME DONE ON 05/29/17, R LOBECTOMY/THORACOTOMY, R INGUINAL HERNIA REPAIR, COLONOSCOPY IN 2002, BILATERAL CATARACT REMOVAL WITH LENS IMPLANTS, R TESTICLE REMOVED. Past Anesthesia/Blood Transfusion Reactions: Postoperative Nausea & Vomiting (PONV) Additional Past Anesthesia/Blood Transfusion Reaction / Comment(s): PT STATES WITH BRONCHOSCOPY 05/29/17 HE HAD PONV. PT HAS CLAUSTERPHOBIA. Past Psychological History: No Psychological Hx Reported Smoking Status: Former smoker Past Alcohol Use History: None Reported Past Drug Use History: None Reported - Past Family History Father Family Medical History: Hypertension, Seizure Disorder Mother Family Medical History: Cancer, Diabetes Mellitus Additional Family Medical History / Comment(s): breast cancer General Exam Limitations: no limitations General appearance: alert, in no apparent distress, other (Physical well- developed, well-nourished elderly male patient in mild distress related to pain. Vital signs upon presentation are temperature 98.2F, pulse 102, respirations 20, blood pressure 150/78, pulse ox 91% on 2 L.) Eye exam: Present: normal appearance, PERRL, EOMI. Absent: scleral icterus, conjunctival injection, periorbital swelling ENT exam: Present: normal exam, normal oropharynx, mucous membranes moist Respiratory exam: Present: decreased breath sounds (Throughout the posterior l marley ramirez). Absent: normal lung sounds bilaterally, respiratory distress, wheezes, rales, rhonchi, stridor Cardiovascular Exam: Present: normal rhythm, tachycardia, normal heart sounds. Absent: systolic murmur, diastolic murmur, rubs, gallop, clicks GI/Abdominal exam: Present: soft, normal bowel sounds. Absent: distended, tenderness, guarding, rebound, rigid Back exam: Present: vertebral tenderness (Over the thoracic vertebrae). Absent: normal inspection Neurological exam: Present: alert, oriented X3, CN II-XII intact Psychiatric exam: Present: normal affect, normal mood Skin exam: Present: warm, dry, intact, normal color. Absent: rash Course Vital Signs 07/02/18 00:49 Temperature 98.2 F Pulse Rate 102 H Respiratory 20 Rate Blood Pressure 150/78 O2 Sat by Pulse 91 L Oximetry Medical Decision Making - Medical Decision Making 77-year-old male patient presents to the emergency department today for evaluation of shortness of breath and uncontrolled pain to the upper back. Physical examination reveals diminished lung sounds throughout the posterior lung ramirez. Labs reviewed and did reveal elevated white blood cell count at 11.4. Patient did have elevated BUN at 29. Chest x-ray was obtained and showed possible right lower lobe infiltrate. Given cough, elevated white blood cell count, shortness of breath treat patient for pneumonia. Since he was recently admitted to the hospital we'll treat for HCAP. He'll be admitted to the hospital for further evaluation and monitoring. - Lab Data Result diagrams: 07/02/18 01:45 07/02/18 01:45 Lab Results 07/02/18 07/02/18 07/02/18 Range/Units 01:45 01:45 01:45 WBC 11.4 H (3.8-10.6) k/uL RBC 4.03 L (4.30-5.90) m/uL Hgb 12.7 L (13.0-17.5) gm/dL Hct 38.9 L (39.0-53.0) % MCV 96.5 (80.0-100.0) fL MCH 31.6 (25.0-35.0) pg MCHC 32.7 (31.0-37.0) g/dL RDW 13.9 (11.5-15.5) % Plt Count 243 (150-450) k/uL Neutrophils % 75 % Lymphocytes % 17 % Monocytes % 5 % Eosinophils % 1 % Basophils % 0 % Neutrophils # 8.6 H (1.3-7.7) k/uL Lymphocytes # 2.0 (1.0-4.8) k/uL Monocytes # 0.6 (0-1.0) k/uL Eosinophils # 0.1 (0-0.7) k/uL Basophils # 0.0 (0-0.2) k/uL PT 9.7 (9.0-12.0) sec INR 0.9 (<1.2) APTT 21.3 L (22.0-30.0) sec Sodium 141 (137-145) mmol/L Potassium 4.1 (3.5-5.1) mmol/L Chloride 103 (98-107) mmol/L Carbon Dioxide 30 (22-30) mmol/L Anion Gap 8 mmol/L BUN 29 H (9-20) mg/dL Creatinine 0.92 (0.66-1.25) mg/dL Est GFR (CKD-EPI)AfAm >90 (>60 ml/min/1.73 sqM) Est GFR (CKD-EPI)NonAf 80 (>60 ml/min/1.73 sqM) Glucose 110 H (74-99) mg/dL Calcium 9.6 (8.4-10.2) mg/dL Total Bilirubin 0.8 (0.2-1.3) mg/dL AST 24 (17-59) U/L ALT 30 (21-72) U/L Alkaline Phosphatase 95 (38-126) U/L Troponin I (0.000-0.034) ng/mL Total Protein 6.5 (6.3-8.2) g/dL Albumin 4.0 (3.5-5.0) g/dL 07/02/18 Range/Units 01:45 WBC (3.8-10.6) k/uL RBC (4.30-5.90) m/uL Hgb (13.0-17.5) gm/dL Hct (39.0-53.0) % MCV (80.0-100.0) fL MCH (25.0-35.0) pg MCHC (31.0-37.0) g/dL RDW (11.5-15.5) % Plt Count (150-450) k/uL Neutrophils % % Lymphocytes % % Monocytes % % Eosinophils % % Basophils % % Neutrophils # (1.3-7.7) k/uL Lymphocytes # (1.0-4.8) k/uL Monocytes # (0-1.0) k/uL Eosinophils # (0-0.7) k/uL Basophils # (0-0.2) k/uL PT (9.0-12.0) sec INR (<1.2) APTT (22.0-30.0) sec Sodium (137-145) mmol/L Potassium (3.5-5.1) mmol/L Chloride (98-107) mmol/L Carbon Dioxide (22-30) mmol/L Anion Gap mmol/L BUN (9-20) mg/dL Creatinine (0.66-1.25) mg/dL Est GFR (CKD-EPI)AfAm (>60 ml/min/1.73 sqM) Est GFR (CKD-EPI)NonAf (>60 ml/min/1.73 sqM) Glucose (74-99) mg/dL Calcium (8.4-10.2) mg/dL Total Bilirubin (0.2-1.3) mg/dL AST (17-59) U/L ALT (21-72) U/L Alkaline Phosphatase (38-126) U/L Troponin I <0.012 (0.000-0.034) ng/mL Total Protein (6.3-8.2) g/dL Albumin (3.5-5.0) g/dL - EKG Data -: EKG Interpreted by Al EKG Comments: EKG obtained at 0108 shows sinus rhythm with premature atrial complexes. Ventricular rate is 99, TX interval 150, QRS duration 72, QT 340, QTC 436. No e vidence of ST elevation or depression. - Radiology Data Radiology results: report reviewed, image reviewed Two-view x-ray of the chest is obtained. Report reviewed in its entirety. Impression by Dr. Blue shows possible right lower lobe infiltrate. Disposition Clinical Impression: Right lower lobe pneumonia Disposition: ADMITTED IP TO THIS HOSP Condition: Serious Referrals: Grey Esquivel MD [Primary Care Provider] - 1-2 days Decision to Admit Reason: Admit from EC Decision Date: 07/02/18 Decision Time: 03:21
[2018-07-02] MEDS ORDERED: TOBRAMYCIN SULFATE IVPB SCH (03:15)
[2018-07-02] MEDS ORDERED: SODIUM CHLORIDE 0.9% IVPB SCH (03:15)
[2018-07-02] MEDS ORDERED: HYDROcodone/APAP 10-325MG 1 EACH TAB PO ONE (05:00)
[2018-07-02 05:11] VITALS: RESP 18
[2018-07-02 07:37] VITALS: BP 164/77; TEMP 97.5
[2018-07-02] MEDS ORDERED: ALBUTEROL NEBULIZED 2.5 MG/3 ML INHALATION SCH (08:00)
[2018-07-02] MEDS ORDERED: predniSONE 10 MG TAB PO SCH (09:00)
[2018-07-02] MEDS ORDERED: FUROSEMIDE 40 MG TAB PO SCH (09:00)
[2018-07-02] MEDS ORDERED: NON-FORMULARY DRUG (Potassium [Potassium] 99 MG) PO SCH (09:00)
[2018-07-02] MEDS ORDERED: NAPROXEN 250 MG TAB PO SCH (09:00)
[2018-07-02] MEDS ORDERED: PSYLLIUM HUSK 100% 6 GM PACKET PO SCH (09:00)
[2018-07-02] MEDS ORDERED: predniSONE 20 MG TAB PO SCH (10:45)
[2018-07-02] MEDS ORDERED: PIPERACILLIN-TAZOBACTAM 3.375 GM in SODIUM CHLORIDE 0.9% 100 ML IVPB SCH (11:00)
[2018-07-02] MEDS ORDERED: IPRATROPIUM-ALBUTEROL 3 ML NEB INHALATION SCH (12:00)
[2018-07-02] MEDS ORDERED: ACETAMINOPHEN TAB 325 MG TAB PO SCH (12:00)
[2018-07-02 12:18] VITALS: PULSE 96
[2018-07-02] MEDS ORDERED: SYMBICORT 160-4.5 MCG INHALER INHALATION SCH (20:00)
[2018-07-02] MEDS ORDERED: ATORVASTATIN 20 MG TAB PO SCH (21:00)
[2018-07-02] MEDS ORDERED: TAMSULOSIN 0.4 MG CAP.ER.24H PO SCH (21:00)
[2018-07-02] MEDS ORDERED: HYDROcodone/APAP 10-325MG 1 EACH TAB PO SCH (21:00)
[2018-07-03] MEDS ORDERED: AZITHROMYCIN 500 MG TAB PO SCH (02:59)
--- NOTE | 2018-07-03 04:31 | DS ---
DISCHARGE SUMMARY HISTORY PHYSICAL AND DISCHARGE SUMMARY: DATE OF ADMISSION: 07/02/2018. DATE OF DISCHARGE: 07/02/2018. FINAL DIAGNOSES: 1. Acute pain from acute compression fracture of T6 in L1 and chronic fractures of multiple levels causing acute lower back pain with radiculopathy. 2. Bilateral sciatica. 3. Chronic obstructive pulmonary disease in an ex-smoker. 4. Hyperlipidemia. 5. Primary osteoarthritis. 6. Gastroesophageal reflux disease. 7. Chronic hypoxic respiratory failure on 2 L oxygen. 8. The patient does not have pneumonia. HOSPITAL COURSE: This patient was just discharged from the hospital on July 01, 2018. Patient also seen by Dr. Coburn. The patient has compression fracture of the vertebral spine at multiple levels including acute fracture as above. The patient was given pain medications including antiinflammatory and antispasmodic to which he responded and he left. The patient came back with increasing pain. The patient's respiratory symptoms are no different than his baseline. He had some clear sputum. No fever. No chills. The patient is having trouble managing at home. He also was given a brace when he left here. He was also explained in detail last time that the pain will take some time to get better. The patient has no involvement of bladder or urine. REVIEW OF SYSTEMS: CONSTITUTIONAL: None. HEENT none. RESPIRATORY: At baseline. CARDIOVASCULAR: None. GASTROINTESTINAL: Heartburn. GENITOURINARY: None. MUSCULOSKELETAL as above. DERMATOLOGICAL, HEMATOLOGIC, LYMPHATIC: none. PSYCHIATRY none. NEUROLOGICAL: None. PAST MEDICAL HISTORY: COPD, GERD, hyperlipidemia, osteoarthritis, pneumonia. On home oxygen 2 L, bilateral lower extremity edema, chronic lower back pain with bilateral sciatica, compression fracture of the vertebral spine. PAST SURGICAL HISTORY: Bronchoscopy, lavage, right lobectomy, thoracotomy, right inguinal hernia repair, bilateral cataract removal with lens implant, right testicle removed. SOCIAL HISTORY: The patient used to work in a factory with welding and pain, smoked for about 40 years, stopped in 2004. . FAMILY HISTORY: Hypertension, seizure, breast cancer. HOME MEDICATIONS: 1. Prednisone taper. 2. Flomax 0.4 mg at bedtime. 3. Metamucil 6 grams p.o. b.i.d. 4. Potassium. 5. Naproxen 500 mg q.12 hours. 6. Combivent 1 puff q.i.d. p.r.n. 7. DuoNeb q.i.d. 8. [place] 10 1 tab q.h.s. 9. Lasix 40 mg p.o. daily. 10.Symbicort 160/4.5, 2 puffs b.i.d. 11.Baclofen 5 mg q.6h p.r.n. 12.Lipitor 20 mg q.h.s. ALLERGIES: GABAPENTIN AND LEVAQUIN. EXAMINATION: VITAL SIGNS: Temperature 98.2, pulse 79, respiratory rate 18, blood pressure 140/65, pulse ox 97% on 2 L. GENERAL APPEARANCE: Sitting up, not in distress. EYES: Pupils equal. Conjunctivae normal. HEENT: External appearance of nose and ears normal. Oral cavity normal. NECK: JVD not raised. Mass not palpable. RESPIRATORY: Effort normal. LUNGS: Diminished breath sounds. CARDIOVASCULAR: 1st and 2nd sounds normal. Minimal edema. ABDOMEN: Soft, nontender. Liver and spleen not palpable. PSYCHIATRY: Alert and oriented times three. Mood and affect normal. NEUROLOGICAL: Pupils equal. Cranial nerves grossly intact. Power and sensation grossly intact. INVESTIGATIONS: White count 11.4, hemoglobin 12.7, potassium 4.1, BUN 29, creatinine 0.92. ASSESSMENT: 1. Acute on chronic pain from compression fracture of T6-T11 that is more acute and chronic fractures of multiple levels of vertebra causing acute back pain with radiculopathy. 2. Bilateral sciatica. 3. Chronic obstructive pulmonary disease exacerbation in an ex-smoker. 4. Hyperlipidemia. 5. Primary osteoarthritis. 6. Gastroesophageal reflux disease. 7. Chronic hypoxic respiratory failure on 2 L oxygen. 8. No evidence of pneumonia. PLAN: Care was discussed at length about his pain management. I did tell him also look into alternative pain management techniques for example, acupuncture, etc. Outpatient therapy may also help. Patient is already due to see Dr. Coburn. Sputum is clear. No fever. No chills. Actually looks much better than when he left 2 days ago. All antibiotics have been discontinued. The patient is being discharged home on the above medications. The patient understands the same. Patient also told to use local heat in form of a K-pad, ice pack and uses his brace. FOLLOWUP: Follow up with Dr. Coburn on July 20, 2018, follow up with Dr. Esquivel on 07/06/2018. This is both a history physical and discharge summary. Copy to Dr. Eliecer Esquivel in [place]. MMODL / IJN: [id number] /
--- NOTE | 2018-07-03 04:37 | DS ---
DISCHARGE SUMMARY DATE OF ADMISSION: July 02, 2018. DATE OF DISCHARGE: July 02, 2018 For discharge summary please refer to my H and P dictated from earlier today. MMODL / IJN: [id number] /
== END 2018-07-02 15:13 | disposition home or self-care (01) | DRG 543 ==
LOC: EC 00:47 → 3NMEDONC 05:05
PROVIDERS: ADMIT Hospitalist; ATTEND Hospitalist
DX: M48.54XA Collapsed vertebra, not elsewhere classified, thoracic region, initial encounter for fracture (principal); J96.11 Chronic respiratory failure with hypoxia; J44.9 Chronic obstructive pulmonary disease, unspecified; M48.56XA Collapsed vertebra, not elsewhere classified, lumbar region, initial encounter for fracture; M54.15 Radiculopathy, thoracolumbar region; M54.41 Lumbago with sciatica, right side; M54.42 Lumbago with sciatica, left side; G89.29 Other chronic pain; E78.5 Hyperlipidemia, unspecified; M19.91 Primary osteoarthritis, unspecified site; R94.4 Abnormal results of kidney function studies; N42.9 Disorder of prostate, unspecified; K21.9 Gastro-esophageal reflux disease without esophagitis; Z99.81 Dependence on supplemental oxygen; Z79.51 Long term (current) use of inhaled steroids; Z79.1 Long term (current) use of non-steroidal anti-inflammatories (NSAID); Z79.899 Other long term (current) drug therapy; Z90.79 Acquired absence of other genital organ(s); Z87.891 Personal history of nicotine dependence; Z96.1 Presence of intraocular lens; Z98.890 Other specified postprocedural states; Z87.01 Personal history of pneumonia (recurrent); Z98.41 Cataract extraction status, right eye; Z98.42 Cataract extraction status, left eye; Z88.1 Allergy status to other antibiotic agents; Z88.8 Allergy status to other drugs, medicaments and biological substances; Z82.49 Family history of ischemic heart disease and other diseases of the circulatory system; Z82.0 Family history of epilepsy and other diseases of the nervous system; Z80.3 Family history of malignant neoplasm of breast; Z83.3 Family history of diabetes mellitus
CPT/HCPCS: 36415; 71046; 80053; 84484; 85025; 85610; 85730; 87040; 93005; 96365; 96366; 96367; 96375; 99285